=== PATIENT | female | born 1935 | race Caucasian/White ===

== ENCOUNTER 2019-06-13 12:18 | Inpatient (IN) | payer MEDICARE, BC, OTHER ==
[~2019-06-13] VITALS: Ht 170.2 cm; Wt 69.5 kg
[2019-06-17 15:00] VITALS: BP 123/63
[2019-06-17] MEDS ORDERED: NITROGLYCERIN 0.4 MG SUBL TABLET SL PRN (16:15)
[2019-06-17] MEDS ORDERED: IPRATROPIUM 0.5MG/ALBUTEROL 2.5MG INH SOL UD 3ML (DUONEB)(J7620) NEB PRN (16:15)
[2019-06-17] MEDS: FLUCONAZOLE 100 MG TAB GT SCH ×2 (16:15→18:20)
[2019-06-17] MEDS ORDERED: RIFA300C3 GT (16:37)
[2019-06-17] MEDS ORDERED: NYST50SS SS (16:37)
[2019-06-17] MEDS ORDERED: ELIQ2.5T GT (16:37)
[2019-06-17] MEDS ORDERED: DILT1TAB12 GT (16:37)
[2019-06-17] MEDS ORDERED: NYST1POW9 TOP (16:37)
[2019-06-17] MEDS ORDERED: TORS20TA2 GT (16:37)
[2019-06-17] MEDS ORDERED: PANT-23 PO (16:37)
[2019-06-17] MEDS ORDERED: RISP0.5T3 GT (16:37)
[2019-06-17] MEDS ORDERED: NITR4TASL SL (16:37)
[2019-06-17] MEDS ORDERED: ACET160O13 GT (16:37)
[2019-06-17] MEDS ORDERED: POTA1TAB14 GT (16:37)
[2019-06-17] MEDS ORDERED: FAMO1TAB11 GT (16:37)
[2019-06-17] MEDS ORDERED: REFR0.5D8 OU (16:37)
[2019-06-17] MEDS ORDERED: IPRA0.00 INH (16:37)
[2019-06-17] MEDS ORDERED: BISA10SU PR (16:37)
[2019-06-17] MEDS ORDERED: PLAV1TAB2 GT (16:37)
[2019-06-17] MEDS ORDERED: LOSA50TA88 PO (16:37)
[2019-06-17] MEDS ORDERED: CEFA1SOL IV (16:37)
[2019-06-17] MEDS ORDERED: CARV6.25 GT (16:37)
[2019-06-17] MEDS ORDERED: XALA0.007 OU (16:37)
[2019-06-17] MEDS ORDERED: ATOR80TA59 GT (16:37)
[2019-06-17] MEDS: MAGIC MOUTHWASH SUSPENSION BTL SSP SCH (17:30)
[2019-06-17] MEDS ORDERED: HYDROCORTISONE 2.5% 20GM OINTMENT TOP PRN (18:00)
[2019-06-17] MEDS: SODIUM CHLORIDE 0.9% INJ 10 ML SYR IV SCH (18:00)
[2019-06-17] MEDS: ceFAZolin SOD 2 GM in IV 1 EA IV SCH (18:21)
[2019-06-17 19:40] VITALS: BP 151/67
--- NOTE | 2019-06-17 20:04 | CR.PDOC ---
General Date of Consultation: Jun 17, 2019 Referring Provider: SHERRY DELATORRE Consultation REASON FOR CONSULTATION/CHIEF COMPLAINT: ARU HISTORY OF PRESENT ILLNESS: Patient is 83 years old female with past mental history of coronary artery diseases, atrial fibrillation, stroke and rheumatic heart diseases has been admitted to ARU after she has been treated in [facility] for MSSA bacteremia with galena valve endocarditis, patient currently receives treatment with Ancef and rifampin, PEDRO performed on 06/15 showed continued vegetations of the mitral valve with some mitral regurgitation. Also during hospital stay patient developed CVA, unclear source, could be thromboembolic secondary to atrial fibrillation or due to infective emboli. Patient has residual deficits including dysphagia and encephalopathy. Patient has a PEG tube placed on 06/03. Patient is able to take soft food by mouth. Also patient has a history of coronary artery diseases, patient is on Eliquis and Plavix. Today during my interview patient complains of oral thrush which give her some discomfort. Patient denies fever, chills, nausea, vomiting, palpitations, shortness of breath, diarrhea or dysuria ALLERGIES: Please see below. HOME MEDICATIONS: Please see below. PAST MEDICAL HISTORY: Coronary artery diseases, endocarditis, atrial fibrillation, stroke and rheumatic heart diseases Dyslipidemia, severe aortic stenosis, non-STEMI PAST SURGICAL HISTORY: Non-STEMI with PCI and stents to distal LM TaVR in 2017, multiple cardiac stents placed in 2017 FAMILY HISTORY: Father: Hypertension Mother: Heart diseases SOCIAL HISTORY: ETOH: Denied Illicit drug use: Denied IV drug use: Denied Other relevant social factors: Denied REVIEW OF SYSTEMS: 10 point system review negative except as listed above PHYSICAL EXAMINATION: VITAL SIGNS: Please see below. GENERAL APPEARANCE: Nontender distress HEENT: PERRLA, EOMI, no JVD, some oral thrush RESPIRATORY: Diminished lung sounds, some rhonchi bilaterally CARDIOVASCULAR: Irregularly irregular, mild cardiac murmur ABDOMEN: Soft nontender nondistended EXTREMITIES: No swelling, growing erythema NEUROLOGICAL: No nuchal rigidity LABORATORY DATA: Please see below. ASSESSMENT/PLAN: Patient is 83 years old female with past mental history of coronary artery diseases, atrial fibrillation, stroke and rheumatic heart diseases has been admitted to ARU after she has been treated in [facility] for MSSA bacteremia with galena valve endocarditis, patient currently receives treatment with Ancef and rifampin Endocarditis Continue treatment with IV antibiotics Continue to monitor inflammatory markers, CBC Coronary artery diseases Continue cardioprotective medications Oral thrush/groin erythema Secondary to Fara infection Nystatin mouth wash, nystatin powder CVA Continue PT/OT Vital Signs/I&O Vital Signs Date Time Temp Pulse Resp B/P (MAP) Pulse Ox O2 Delivery O2 Flow Rate FiO2 06/17/19 18:20 104 131/64 06/17/19 15:00 97.9 16 79 Allergies Coded Allergies: Penicillins (Verified Allergy, Unknown, 06/17/19) bee venom protein (honey bee) (Verified Allergy, Unknown, 06/17/19) cephalexin (Verified Allergy, Unknown, 06/17/19) sulfamethoxazole (Verified Allergy, Unknown, 06/17/19) trimethoprim (Verified Allergy, Unknown, 06/17/19) Home Medications Scheduled Apixaban (Eliquis) 2.5 Mg Tablet, 2.5 MG GT BID, (Reported) STARTED AT [facility] Atorvastatin Calcium (Atorvastatin Calcium) 80 Mg Tablet, 80 MG GT QHS, (Reported) HOME MED Carvedilol (Carvedilol) 6.25 Mg Tablet, 6.25 MG GT TID, (Reported) HOME MED Cefazolin Sodium/Dextrose,Iso (Cefazolin 2 G/100 ml-Dextrose) 2 Gm/100 Ml Froz.piggy, 2 GM IV TID, (Reported) STARTED AT [facility] Clopidogrel Bisulfate (Plavix) 75 Mg Tablet, 75 MG GT DAILY, (Reported) Diltiazem HCl (Diltiazem HCl) 60 Mg Tablet, 60 MG GT Q6H, (Reported) STARTED AT [facility] Famotidine (Famotidine) 20 Mg Tablet, 20 MG GT QHS, (Reported) Latanoprost (Xalatan) 0.005% 2.5ML Drops, 1 DROP OU QHS, (Reported) Losartan Potassium (Losartan Potassium) 50 Mg Tablet, 50 MG PO DAILY, (Reported) HOME MED Nystatin (Nystatin Oral Susp) 100,000 Unit/1 Ml Oral.susp, 5 ML SS QID, (Reported) STARTED AT [facility] Nystatin (Nystatin Powder) 15 Gm Powder, 1 DOSE TOP TID, (Reported) APPLY TO GROIN AREA - STARTED AT [facility] Pantoprazole Sodium (Pantoprazole Sodium) 40 Mg Tablet.dr, 40 MG PO DAILY, (Reported) HOME MED Potassium Chloride (Potassium Chloride) 20 Meq Tablet.er, 40 MEQ GT TID, (Reported) Rifampin (Rifampin) 300 Mg Capsule, 300 MG GT Q12H, (Reported) STARTED AT [facility] Risperidone (Risperidone) 0.5 Mg Tablet, 0.5 MG GT TID, (Reported) STARTED AT [facility] Torsemide (Torsemide) 20 Mg Tablet, 20 MG GT DAILY, (Reported) STARTED AT [facility] Scheduled PRN Acetaminophen (Children's Tylenol) 160 Mg/5 Ml Oral.susp, 640 MG GT Q4H PRN for PAIN / FEVER, (Reported) STARTED AT [facility] Bisacodyl (Bisacodyl) 10 Mg Supp.rect, 10 MG ND DAILY PRN for CONSTIPATION, (Reported) Carboxymethylcellulose Sodium (Refresh Tears) 15 Ml Drops, 1 DROP OU Q3HP PRN for DRY EYES, (Reported) Ipratropium/Albuterol Sulfate (Iprat-Albut 0.5-3(2.5) mg/3 ml) 3 Ml Ampul.neb, 1 SAL INH Q4H PRN for SHORTNESS OF BREATH, (Reported) Nitroglycerin (Nitrostat) 0.4 Mg Tab.subl, 0.4 MG SL NITRO PRN for CHEST PAIN, (Reported) SHAR MEDRANO DO Jun 17, 2019 20:04
[2019-06-17] MEDS ORDERED: risperiDONE 0.5 MG TAB GT SCH (21:00)
[2019-06-17] MEDS ORDERED: zolPIDEM TARTRATE 5 MG TAB GT PRN (21:00)
[2019-06-17] MEDS ORDERED: risperiDONE 1 MG/1 ML SOLN ORAL SYRINGE GT SCH (21:00)
[2019-06-17] MEDS: APIXABAN 2.5 MG TAB (ELIQUIS) PO SCH (22:01)
[2019-06-17] MEDS: FAMOTIDINE 20 MG TAB GT SCH (22:01)
[2019-06-17] MEDS: NYSTATIN 100,000 UNITS/GM TOPICAL PWD 15 GM TOP SCH (22:02)
[2019-06-17] MEDS: POTASSIUM CHL PWD 20 MEQ PACKET GT SCH (22:02)
[2019-06-17] MEDS: ATORVASTATIN 20 MG TAB GT SCH (22:02)
[2019-06-17] MEDS: POLYVINYL ALCOHOL OPHTH SOLN 15 ML(LIQUITEARS) OU SCH (22:03)
[2019-06-17] MEDS: LATANOPROST 0.005% OPHTH SOLN 2.5 ML OU SCH (22:03)
[2019-06-17] MEDS: risperiDONE 1 MG/1 ML SOLN ORAL SYRINGE GT SCH (22:04)
[2019-06-18] MEDS: ceFAZolin SOD 2 GM in IV 1 EA IV SCH ×3 (03:55→18:01)
[2019-06-18] MEDS: SODIUM CHLORIDE 0.9% INJ 10 ML SYR IV SCH ×2 (05:09→17:08)
[2019-06-18 05:45] VITALS: BP 137/66
[2019-06-18] MEDS: MAGIC MOUTHWASH SUSPENSION BTL SSP SCH ×3 (07:30→17:08)
[2019-06-18 07:37] LABS: BASO # 0.1 10^3/uL (0.0-0.2); BASO % 0.7 % (0.0-1.0); EOS # 0.5 10^3/uL (0.0-0.5); EOS % 4.8 % (0.0-3.0); HEMATOCRIT 33.1 % (36.0-47.0); HEMOGLOBIN 10.5 g/dl (12.0-15.5); LYMPH # 1.1 10^3/uL (1.5-5.0); LYMPH % 9.7 % (24.0-44.0); MEAN CORPUSCULAR HEMOGLOBIN 29.1 pg (27.0-33.0); MEAN CORPUSCULAR HGB CONC 31.7 g/dl (32.0-36.5); MEAN CORPUSCULAR VOLUME 91.7 fl (80.0-96.0); NEUTROPHILS # 8.3 10^3/uL (1.5-8.5); NEUTROPHILS % 75.3 % (36.0-66.0); PLATELET COUNT, AUTOMATED 516 10^3/uL (150-450); RED BLOOD COUNT 3.61 10^6/uL (4.00-5.40); WHITE BLOOD COUNT 11.1 10^3/uL (4.0-10.0)
[2019-06-18 08:00] LABS: ALBUMIN 2.7 GM/DL (3.2-5.2); ALT/SGPT 9 U/L (12-78); BILIRUBIN,TOTAL 0.6 MG/DL (0.2-1.0); BLOOD UREA NITROGEN 16 MG/DL (7-18); CALCIUM LEVEL 9.1 MG/DL (8.8-10.2); CARBON DIOXIDE LEVEL 28 MEQ/L (21-32); CHLORIDE LEVEL 96 MEQ/L (98-107); CREATININE FOR GFR 0.58 MG/DL (0.55-1.30); GLOMERULAR FILTRATION RATE > 60.0 (>32); GLUCOSE, FASTING 107 MG/DL (70-100); POTASSIUM SERUM 3.9 MEQ/L (3.5-5.1); SODIUM LEVEL 131 MEQ/L (136-145); TOTAL PROTEIN 7.5 GM/DL (6.4-8.2)
[2019-06-18] MEDS: risperiDONE 1 MG/1 ML SOLN ORAL SYRINGE GT SCH ×2 (09:54→21:58)
[2019-06-18] MEDS: POTASSIUM CHL PWD 20 MEQ PACKET GT SCH ×3 (09:54→21:58)
[2019-06-18] MEDS: CLOPIDOGREL 75 MG TAB GT SCH (09:55)
[2019-06-18] MEDS: POLYVINYL ALCOHOL OPHTH SOLN 15 ML(LIQUITEARS) OU SCH ×3 (09:55→22:00)
[2019-06-18] MEDS: NYSTATIN 100,000 UNITS/GM TOPICAL PWD 15 GM TOP SCH ×2 (09:55→22:00)
[2019-06-18] MEDS: TORSEMIDE 20 MG TAB GT SCH (09:55)
[2019-06-18] MEDS: APIXABAN 2.5 MG TAB (ELIQUIS) PO SCH ×2 (09:55→21:58)
[2019-06-18 11:10] VITALS: BP 130/73
[2019-06-18] MEDS: SODIUM CHLORIDE 0.9% INJ 10 ML SYR IV PRN ×2 (11:11→18:02)
[2019-06-18 14:00] VITALS: BP 132/70
--- NOTE | 2019-06-18 16:30 | HPEPDOC ---
Welcome Wagon Host/Hostess Note DATE OF ADMISSION: 06-17-19 SOURCE OF ADMISSION INFORMATION: [facility] and patient CHIEF COMPLAINT: stroke with endocarditis HISTORY OF PRESENT ILLNESS: 83F pmg TAVR in 2017, CAD s/p stents 2017, NSTEMI, HTN, GERD who presented to [facility] May 16, 2019 with lethargy and altered mental status and a temperature of 105 with one EKG showing Afib and admitted for sepsis. She had an elevated BNP and troponins without ST elevations. She was started on Rocephin, gentamcin, and Vancomycin. TTE on 05-18-19 showed, mild grade 1 diastolic dysfunction without vegetations on any of her valves. She was found to have MSSA bacteremia and her IV antibiotics were switched to Ancef and Rifampin. She had worsening mental status and was found to have right occipital lobe infarct with right cerebellar hemisphere and frontoparetal signal abnormalities with a ring enhancing lesion suspicious for neoplasm versus infectious emboli. She underwent a follow-up TTE on 06-13-19 after developing bradycardia with Wenckebach which showed, Moderate mitral regurgitationlarge vegetation seen prolapsing into the right atrium and Aortic Valvewell seated stent mounted biprosthetic valvano obvious perivalvular abscess or endocarditis seenno vegetations. She continued to have poor po intake with dysphaghia and a PEG was placed on 06-03-19, however patient was upgraded to level two and thins prior to discharge. She had an episode of CHF exacerbation prior to discharge, was given diuretics, and Carrion placed. She had impairments in mobility and ADLS and deemed medically appropriate for discharge to ARU on 06-17-19. REVIEW OF SYSTEMS: The following is a completed review of systems and has been reviewed. Review of systems otherwise unremarkable. PAIN: Patient self reports no pain EYES: No recent vision changes EARS, NOSE, & THROAT: No throat pain, or dysphagia, or rhinorrhea CARDIOVASCULAR: Denies chest pain or palpitations PULMONARY: Denies shortness of breath GASTROINTESTINAL: Denies constipation/diarrhea GENITOURINARY: +carrion MUSCULOSKELETAL: left sided weakness NEUROLOGICAL:stroke with left sided negelct HEMATOLOGICAL: no easy bruising SKIN: PEG PSYCHIATRIC: Unremarkable. All other review of systems found to be negative. PAST MEDICAL HISTORY: as per HPI PAST SURGICAL HISTORY: as per HPI ALLERGIES: Please see below. MEDICATIONS: Please see below. FAMILY HISTORY: Cardiac disease and DM, breast cancer SOCIAL HISTORY: no smoking/etoh/illicit drugs DIET: level 2 thins PHYSICAL EXAMINATION: VITAL SIGNS: Please see below. GENERAL: Pleasant and cooperative. No acute distress. HEENT: PERRL. Extraocular movements intact. Clear conjunctiv CARDIOVASCULAR: Regular rate and rhythm. No murmurs, rubs, or gallops LUNGS: Clear to auscultation bilaterally. No wheezes. No rhonchi ABDOMEN: Soft, nontender, nondistended. Positive bowel sounds. Normal active bowel sounds, +PEG NEUROLOGICAL: Alert and oriented times three. Cranial nerves II through XII grossly intact. Sensation grossly intact to light touch in all 4 limbs, extinciton to touch on the LUE +clonus LLE, +babinski EXTREMITIES: 5\5 strength right upper extremity, 4/5 LUE with +pronator drift. 5\5 strength right lower extremity. 4/5 strength in left lower extremity. (-) homans (-) edema SKIN: RUE PICC, PEg, intact LABORATORY DATA: Please see below. IMAGING:Imaging documentation personally reviewed by record FUNCTIONAL STATUS: Premorbid: Independent with all activities of daily life as well as mobility On Admission: Mod assistance for bathing, upper body dressing, bed chair and wheelchair transfers, toilet transfers, ambulation. 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 Neuro: right occipital, cerebellar, and frontoparietal strokes likely from septic emboli vs Afib- c/u Eliquis, statin, and plavix for secondary stroke prevention -LUE paresis with dysphagia and mild neglect 3. Cardio: endocarditis of MV, hx of TAVR last ECHO did not show vegetations on prosthetic valve, c/u antibiotics -Afib c/u Eliquis and Diltiazem -CAD s/p stents- plavix -diastolic CGF grade 1, per patient had recent CHF exacerbation. c/u diuretics -medicine consulted 4. Resp: encourage incentive spirometry 5. ID: on Cefazolin and Rifampin MSSA bacteremia (blood cx positive 05-16-19) will consult ID Thursday to assist in management, first diagnosis of endocarditis on 06-13-19 via ECHO, weekly CMP/CRP/ESR, CBC 6. DVT ppx: eliquis 7. GI ppx: pepcid 8. Pain: tylneol prn 9. : patient admitted with Thomas, she is requesting to keep in in over the weekend 9. Psych: c/u Risperidone for agitation 10. Dispo: TBD POST ADMISSION PHYSICIAN EVALUATION: Medical and functional status: Description of medical status, medical assessment: As above. Rehabilitation diagnosis and current and prior cold morbid medical conditions as above. Risk of complications and plans to mitigate them as above. Description of functional status current status is as above. Prior status as above. Status compared to preadmission: There are no clinically significant differences between the patient's current status and the information described on the preadmission screening document. Treatment plan anticipated: Treatment plan is as described above. Required disciplines including physical therapy, occupational therapy, others as noted above. Intensity of services: 3 hours a day, 6 days a week. Special considerations: There are no specific special or safety considerations that would likely preclude immediate implementation of an intensive rehabilitation program or subsequently influence the plan of care ATTESTATION: Considering all the information above, it is my best judgment that this patient requires intensive rehabilitation therapy as described above and an inpatient hospital environment due to the complexity of nursing, medical, and rehabilitation needs required by the patient. Furthermore, this patient can reasonably be expected to participate in an benefit from an inpatient rehabilitation stay with an interdisciplinary team approach to the delivery of rehabilitation care under the direction and supervision of rehabilitation physician. PROGNOSIS: Excellent ESTIMATED LENGTH OF STAY:18-21 days. PROJECTED DISCHARGE DESTINATION: Home with family support and any durable medical equipment required to increase functional safety and mobility. TIME SPENT COUNSELING AND COORDINATING INITIAL CARE: Greater than 70 minutes. Vital Signs Vital Sign - Last 24 Hours 06/17/19 06/17/19 06/17/19 06/18/19 18:20 19:40 23:25 05:45 Temp 99.2 99.9 Pulse 104 103 104 100 Resp 18 18 B/P (MAP) 131/64 151/67 (95) 139/65 137/66 (89) Pulse Ox 99 98 O2 Delivery Room Air Room Air 06/18/19 06/18/19 06/18/19 06/18/19 06:20 11:10 11:11 14:00 Temp 98.1 Pulse 100 107 107 104 Resp 17 B/P (MAP) 137/66 130/73 (92) 130/73 132/70 (90) Pulse Ox 98 O2 Delivery Room Air Laboratory Data CBC/BMP Laboratory Tests 06/18/19 07:11 Labs 24H Laboratory Tests 2 06/18/19 07:11: Immature Granulocyte % (Auto) 0.5, Neutrophils (%) (Auto) 75.3H, Lymphocytes (%) (Auto) 9.7L, Monocytes (%) (Auto) 9.0H, Eosinophils (%) (Auto) 4.8H, Basophils (%) (Auto) 0.7, Neutrophils # (Auto) 8.3, Lymphocytes # (Auto) 1.1L, Monocytes # (Auto) 1.0H, Eosinophils # (Auto) 0.5, Basophils # (Auto) 0.1, Nucleated Red Blood Cells % (auto) 0.0, Anion Gap 7L, Glomerular Filtration Rate > 60.0, Calcium Level 9.1, Total Bilirubin 0.6, Aspartate Amino Transf (AST/SGOT) 41H, Alanine Aminotransferase (ALT/SGPT) 9L, Alkaline Phosphatase 128H, Total Protein 7.5, Albumin 2.7L, Albumin/Globulin Ratio 0.56L Home Medications Scheduled Apixaban (Eliquis) 2.5 Mg Tablet, 2.5 MG GT BID, (Reported) STARTED AT [facility] Atorvastatin Calcium (Atorvastatin Calcium) 80 Mg Tablet, 80 MG GT QHS, (Reported) HOME MED Carvedilol (Carvedilol) 6.25 Mg Tablet, 6.25 MG GT TID, (Reported) HOME MED Cefazolin Sodium/Dextrose,Iso (Cefazolin 2 G/100 ml-Dextrose) 2 Gm/100 Ml Froz.piggy, 2 GM IV TID, (Reported) STARTED AT [facility] Clopidogrel Bisulfate (Plavix) 75 Mg Tablet, 75 MG GT DAILY, (Reported) Diltiazem HCl (Diltiazem HCl) 60 Mg Tablet, 60 MG GT Q6H, (Reported) STARTED AT [facility] Famotidine (Famotidine) 20 Mg Tablet, 20 MG GT QHS, (Reported) Latanoprost (Xalatan) 0.005% 2.5ML Drops, 1 DROP OU QHS, (Reported) Losartan Potassium (Losartan Potassium) 50 Mg Tablet, 50 MG PO DAILY, (Reported) HOME MED Nystatin (Nystatin Oral Susp) 100,000 Unit/1 Ml Oral.susp, 5 ML SS QID, (Reported) STARTED AT [facility] Nystatin (Nystatin Powder) 15 Gm Powder, 1 DOSE TOP TID, (Reported) APPLY TO GROIN AREA - STARTED AT [facility] Pantoprazole Sodium (Pantoprazole Sodium) 40 Mg Tablet.dr, 40 MG PO DAILY, (Reported) HOME MED Potassium Chloride (Potassium Chloride) 20 Meq Tablet.er, 40 MEQ GT TID, (Reported) Rifampin (Rifampin) 300 Mg Capsule, 300 MG GT Q12H, (Reported) STARTED AT [facility] Risperidone (Risperidone) 0.5 Mg Tablet, 0.5 MG GT TID, (Reported) STARTED AT [facility] Torsemide (Torsemide) 20 Mg Tablet, 20 MG GT DAILY, (Reported) STARTED AT [facility] Scheduled PRN Acetaminophen (Children's Tylenol) 160 Mg/5 Ml Oral.susp, 640 MG GT Q4H PRN for PAIN / FEVER, (Reported) STARTED AT [facility] Bisacodyl (Bisacodyl) 10 Mg Supp.rect, 10 MG VA DAILY PRN for CONSTIPATION, (Reported) Carboxymethylcellulose Sodium (Refresh Tears) 15 Ml Drops, 1 DROP OU Q3HP PRN for DRY EYES, (Reported) Ipratropium/Albuterol Sulfate (Iprat-Albut 0.5-3(2.5) mg/3 ml) 3 Ml Ampul.neb, 1 SAL INH Q4H PRN for SHORTNESS OF BREATH, (Reported) Nitroglycerin (Nitrostat) 0.4 Mg Tab.subl, 0.4 MG SL NITRO PRN for CHEST PAIN, (Reported) Allergies Coded Allergies: Penicillins (Verified Allergy, Unknown, 06/17/19) bee venom protein (honey bee) (Verified Allergy, Unknown, 06/17/19) cephalexin (Verified Allergy, Unknown, 06/17/19) sulfamethoxazole (Verified Allergy, Unknown, 06/17/19) trimethoprim (Verified Allergy, Unknown, 06/17/19) A-FIB/CHADSVASC A-FIB History Current/History of A-Fib/PAF?: Yes Current PO Anticoag Therapy: Yes SANJUANITA MOBLEY MD Jun 18, 2019 16:30
[2019-06-18 17:06] VITALS: BP 146/74
[2019-06-18 20:45] VITALS: BP 156/68
[2019-06-18] MEDS: ATORVASTATIN 20 MG TAB GT SCH (21:58)
[2019-06-18] MEDS: FAMOTIDINE 20 MG TAB GT SCH (21:58)
[2019-06-18] MEDS: LATANOPROST 0.005% OPHTH SOLN 2.5 ML OU SCH (22:00)
[2019-06-18] MEDS: ACETAMINOPHEN 325 MG/10.15 ML UDC GT PRN (22:02)
[2019-06-19] MEDS: ceFAZolin SOD 2 GM in IV 1 EA IV SCH ×3 (03:57→18:38)
[2019-06-19 05:41] VITALS: BP 133/70
[2019-06-19] MEDS: SODIUM CHLORIDE 0.9% INJ 10 ML SYR IV SCH ×3 (05:43→17:30)
[2019-06-19] MEDS: NYSTATIN 100,000 UNITS/GM TOPICAL PWD 15 GM TOP SCH ×2 (08:48→19:32)
[2019-06-19] MEDS: POLYVINYL ALCOHOL OPHTH SOLN 15 ML(LIQUITEARS) OU SCH ×3 (08:48→19:38)
[2019-06-19] MEDS: POTASSIUM CHL PWD 20 MEQ PACKET GT SCH ×3 (08:49→19:26)
[2019-06-19] MEDS: CLOPIDOGREL 75 MG TAB GT SCH (08:49)
[2019-06-19] MEDS: TORSEMIDE 20 MG TAB GT SCH (08:49)
[2019-06-19] MEDS: APIXABAN 2.5 MG TAB (ELIQUIS) PO SCH ×2 (08:49→19:30)
[2019-06-19] MEDS: risperiDONE 1 MG/1 ML SOLN ORAL SYRINGE GT SCH ×2 (08:50→19:30)
[2019-06-19] MEDS: MAGIC MOUTHWASH SUSPENSION BTL SSP SCH ×3 (08:50→17:31)
[2019-06-19] MEDS ORDERED: FLUBLOK(EGG FREE)(QUAD)INFLUENZA VACC 0.5ML SYRINGE (90682)18YRS&OLDER IM ONE (09:00)
[2019-06-19 11:17] VITALS: BP 140/70
[2019-06-19] MEDS: SODIUM CHLORIDE 0.9% INJ 10 ML SYR IV PRN ×3 (11:44→19:26)
[2019-06-19 14:00] VITALS: BP 140/66
[2019-06-19 16:44] VITALS: BP 151/73
[2019-06-19] MEDS: ATORVASTATIN 20 MG TAB GT SCH (19:29)
[2019-06-19] MEDS: FAMOTIDINE 20 MG TAB GT SCH (19:30)
[2019-06-19] MEDS: LATANOPROST 0.005% OPHTH SOLN 2.5 ML OU SCH (19:31)
[2019-06-19] MEDS: ACETAMINOPHEN 325 MG/10.15 ML UDC GT PRN (19:37)
[2019-06-19 19:40] VITALS: BP 165/71
[2019-06-20] MEDS: ceFAZolin SOD 2 GM in IV 1 EA IV SCH ×3 (02:01→17:45)
[2019-06-20] MEDS: SODIUM CHLORIDE 0.9% INJ 10 ML SYR IV SCH ×2 (02:49→17:42)
[2019-06-20 05:10] VITALS: BP 163/72
[2019-06-20 06:41] LABS: BASO # 0.1 10^3/uL (0.0-0.2); BASO % 0.6 % (0.0-1.0); EOS # 0.8 10^3/uL (0.0-0.5); HEMATOCRIT 29.4 % (36.0-47.0); HEMOGLOBIN 9.5 g/dl (12.0-15.5); LYMPH % 8.5 % (24.0-44.0); MEAN CORPUSCULAR HEMOGLOBIN 29.4 pg (27.0-33.0); MEAN CORPUSCULAR HGB CONC 32.3 g/dl (32.0-36.5); MONO % 8.3 % (0.0-5.0); NEUTROPHILS # 8.9 10^3/uL (1.5-8.5); NEUTROPHILS % 74.9 % (36.0-66.0); PLATELET COUNT, AUTOMATED 488 10^3/uL (150-450); RED BLOOD COUNT 3.23 10^6/uL (4.00-5.40); WHITE BLOOD COUNT 11.9 10^3/uL (4.0-10.0)
[2019-06-20 07:02] LABS: BLOOD UREA NITROGEN 15 MG/DL (7-18); C REACTIVE PROTEIN QUANTITATIV 7.71 MG/DL (0.00-0.30); CALCIUM LEVEL 8.9 MG/DL (8.8-10.2); CARBON DIOXIDE LEVEL 26 MEQ/L (21-32); CHLORIDE LEVEL 98 MEQ/L (98-107); CREATININE FOR GFR 0.68 MG/DL (0.55-1.30); GLOMERULAR FILTRATION RATE > 60.0 (>32); GLUCOSE, FASTING 93 MG/DL (70-100); POTASSIUM SERUM 3.9 MEQ/L (3.5-5.1); SODIUM LEVEL 133 MEQ/L (136-145)
[2019-06-20 07:31] LABS: ERYTHROCYTE SEDIMENTATION RATE 91 mm/hr (0-30)
[2019-06-20] MEDS: TORSEMIDE 20 MG TAB GT SCH (09:23)
[2019-06-20] MEDS: risperiDONE 1 MG/1 ML SOLN ORAL SYRINGE GT SCH (09:23)
[2019-06-20] MEDS: POTASSIUM CHL PWD 20 MEQ PACKET GT SCH (09:23)
[2019-06-20] MEDS: APIXABAN 2.5 MG TAB (ELIQUIS) PO SCH ×2 (09:23→22:02)
[2019-06-20] MEDS: CLOPIDOGREL 75 MG TAB GT SCH (09:23)
[2019-06-20] MEDS: NYSTATIN 100,000 UNITS/GM TOPICAL PWD 15 GM TOP SCH ×2 (09:24→22:06)
[2019-06-20] MEDS: POLYVINYL ALCOHOL OPHTH SOLN 15 ML(LIQUITEARS) OU SCH ×3 (09:24→22:06)
[2019-06-20] MEDS: MAGIC MOUTHWASH SUSPENSION BTL SSP SCH ×3 (09:24→17:45)
[2019-06-20] MEDS ORDERED: ACETAMINOPHEN 500 MG TAB PO SCH (12:20)
[2019-06-20] MEDS ORDERED: ATORVASTATIN 20 MG TAB PO SCH (12:21)
[2019-06-20] MEDS ORDERED: risperiDONE 0.5 MG TAB GT SCH (12:24)
[2019-06-20] MEDS ORDERED: zolPIDEM TARTRATE 5 MG TAB PO PRN (12:30)
[2019-06-20 14:00] VITALS: BP 129/64
[2019-06-20] MEDS: ANALGESIC BALM CRM 120 GM TOP SCH ×2 (16:00→22:06)
[2019-06-20] MEDS: POTASSIUM CHLORIDE 10 MEQ SR TABLET PO SCH ×2 (16:42→22:03)
[2019-06-20] MEDS: ACETAMINOPHEN 500 MG TAB PO SCH ×2 (16:43→22:05)
[2019-06-20 20:00] VITALS: BP 146/67
[2019-06-20] MEDS: FAMOTIDINE 20 MG TAB PO SCH (21:00)
[2019-06-20] MEDS: ATORVASTATIN 20 MG TAB PO SCH (22:02)
[2019-06-20] MEDS: risperiDONE 0.5 MG TAB PO SCH (22:02)
[2019-06-20] MEDS: LATANOPROST 0.005% OPHTH SOLN 2.5 ML OU SCH (22:06)
[2019-06-21] MEDS: ceFAZolin SOD 2 GM in IV 1 EA IV SCH ×3 (02:53→17:48)
[2019-06-21] MEDS: SODIUM CHLORIDE 0.9% INJ 10 ML SYR IV PRN (04:08)
[2019-06-21] MEDS: SODIUM CHLORIDE 0.9% INJ 10 ML SYR IV SCH ×2 (05:17→17:49)
[2019-06-21 06:00] VITALS: BP 160/81
[2019-06-21] MEDS: MAGIC MOUTHWASH SUSPENSION BTL SSP SCH ×3 (07:42→17:49)
[2019-06-21] MEDS: APIXABAN 2.5 MG TAB (ELIQUIS) PO SCH ×2 (07:42→20:16)
[2019-06-21] MEDS: TORSEMIDE 20 MG TAB PO SCH (07:42)
[2019-06-21] MEDS: ACETAMINOPHEN 500 MG TAB PO SCH ×3 (07:42→20:16)
[2019-06-21] MEDS: CLOPIDOGREL 75 MG TAB PO SCH (07:43)
[2019-06-21] MEDS: POTASSIUM CHLORIDE 10 MEQ SR TABLET PO SCH ×4 (07:43→21:00)
[2019-06-21] MEDS: risperiDONE 0.5 MG TAB PO SCH (07:43)
[2019-06-21] MEDS: POLYVINYL ALCOHOL OPHTH SOLN 15 ML(LIQUITEARS) OU SCH ×3 (07:44→20:15)
[2019-06-21] MEDS: ANALGESIC BALM CRM 120 GM TOP SCH ×4 (07:44→21:00)
[2019-06-21] MEDS: NYSTATIN 100,000 UNITS/GM TOPICAL PWD 15 GM TOP SCH ×2 (07:44→20:21)
--- NOTE | 2019-06-21 10:13 | IPNPDOC ---
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 REVIEW OF SYSTEMS: The following is a completed review of systems and has been reviewed. Review of systems otherwise unremarkable. PAIN: Patient self reports no pain EYES: No recent vision changes EARS, NOSE, & THROAT: No throat pain, or dysphagia, or rhinorrhea CARDIOVASCULAR: Denies chest pain or palpitations PULMONARY: Denies shortness of breath GASTROINTESTINAL: Denies constipation/diarrhea GENITOURINARY: +carrion MUSCULOSKELETAL: left sided weakness NEUROLOGICAL:stroke with left sided neglect HEMATOLOGICAL: no easy bruising SKIN: PEG PSYCHIATRIC: Unremarkable. All other review of systems found to be negative. PHYSICAL EXAMINATION: VITAL SIGNS: Please see below. GENERAL: Pleasant and cooperative. No acute distress. HEENT: PERRL. Extraocular movements intact. Clear conjunctiv CARDIOVASCULAR: Regular rate and rhythm. No murmurs, rubs, or gallops LUNGS: Clear to auscultation bilaterally. No wheezes. No rhonchi ABDOMEN: Soft, nontender, nondistended. Positive bowel sounds. Normal active bowel sounds, +PEG NEUROLOGICAL: Alert and oriented times three. Cranial nerves II through XII grossly intact. Sensation grossly intact to light touch in all 4 limbs, extinction to touch on the LUE +clonus LLE, +babinski EXTREMITIES: 5\5 strength right upper extremity, 4/5 LUE with +pronator drift. 5\5 strength right lower extremity. 4/5 strength in left lower extremity. 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 Neuro: right occipital, cerebellar, and frontoparietal strokes likely from septic emboli vs Afib- c/u Eliquis, statin, and plavix for secondary stroke prevention -LUE paresis with dysphagia and mild neglect 3. Cardio: endocarditis of MV, hx of TAVR last ECHO did not show vegetations on prosthetic valve, c/u antibiotics -Afib c/u Eliquis 2.5 BID and Diltiazem -CAD s/p stents- plavix -diastolic CHF grade 1, per patient had recent CHF exacerbation, c/u diuretics -medicine consulted 4. Resp: encourage incentive spirometry 5. ID: on Cefazolin and Rifampin MSSA bacteremia (blood cx positive 05-16-19) will consult ID tomorrow to assist in management, first diagnosis of endocarditis on 06-13-19 via ECHO, weekly CMP/CRP/ESR, CBC 6. DVT ppx: eliquis 7. GI ppx: pepcid 8. Pain: tylneol prn 9. : d/c carrion today, monitor PVRs 9. Psych: c/u Risperidone 10. Insomnia: Ambien prn 11. Hyponatremia: improving, will c/u to monitor 12. Pain: Tylenol 1g tid and menthol salicylate to S-I joints 10. Dispo: TBD Allergies Coded Allergies: Penicillins (Verified Allergy, Unknown, 06/17/19) bee venom protein (honey bee) (Verified Allergy, Unknown, 06/17/19) cephalexin (Verified Allergy, Unknown, 06/17/19) sulfamethoxazole (Verified Allergy, Unknown, 06/17/19) trimethoprim (Verified Allergy, Unknown, 06/17/19) Vital Signs Vital Signs Date Time Temp Pulse Resp B/P (MAP) Pulse Ox O2 Delivery O2 Flow Rate FiO2 06/21/19 06:00 97.3 100 17 160/81 (107) 96 Room Air Current Medications Current Medications Current Medications Medications (Trade) Dose Ordered Sig/Shaji Route PRN Reason Start Time Stop Time Status Last Admin Dose Admin Acetaminophen (Tylenol Suspension) 650 mg Q6HP PRN GT PAIN OR FEVER 06/17/19 16:15 06/20/19 12:20 DC 06/19/19 19:37 Acetaminophen (Tylenol Tab) 1,000 mg TID PO 06/20/19 12:20 06/20/19 12:20 DC Acetaminophen (Tylenol Tab) 1,000 mg TID PO 06/20/19 16:00 06/21/19 07:42 Albuterol/ Ipratropium (Duoneb (Ipr 0.5mg/Alb 2.5mg)) 3 ml Q4HP PRN NEB SOB/WHEEZING 06/17/19 16:15 Apixaban (Eliquis) 2.5 mg BID PO 06/17/19 21:00 06/21/19 07:42 Artificial Tears (Akwa Tears) 2 drop TID OU 06/17/19 21:00 06/21/19 07:44 Atorvastatin Calcium (Lipitor) 80 mg QHS GT 06/17/19 21:00 06/20/19 12:21 DC 06/19/19 19:29 Atorvastatin Calcium (Lipitor) 80 mg QHS PO 06/20/19 12:21 06/20/19 12:21 DC Atorvastatin Calcium (Lipitor) 80 mg QHS PO 06/20/19 21:00 06/20/19 22:02 Cefazolin Sodium/ Dextrose 2 gm/IV Miscellaneous Supplies 50 ml @ 75 mls/hr Q8H IV 06/17/19 19:00 06/21/19 02:53 Clopidogrel Bisulfate (PLAVix) 75 mg DAILY GT 06/18/19 09:00 06/20/19 12:21 DC 06/20/19 09:23 Clopidogrel Bisulfate (PLAVix) 75 mg DAILY PO 06/21/19 09:00 06/21/19 07:43 Diltiazem HCl (Cardizem) 60 mg Q6H GT 06/17/19 18:00 06/20/19 12:22 DC 06/20/19 11:54 Diltiazem HCl (Cardizem) 60 mg Q6H PO 06/20/19 18:00 06/21/19 05:47 Famotidine (Pepcid) 20 mg QHS GT 06/17/19 21:00 06/20/19 12:22 DC 06/19/19 19:30 Famotidine (Pepcid) 20 mg QHS PO 06/20/19 21:00 Fluconazole (Diflucan) 200 mg DAILY GT 06/17/19 16:15 06/18/19 10:21 DC Heparin Sodium (Heparin (Flush)) 200 units ASDIRECTED PRN IV SEE LABEL COMMENTS 06/17/19 17:45 06/21/19 04:08 Heparin Sodium (Heparin (Flush)) 200 units PICC IV 06/17/19 18:00 06/20/19 17:42 Home Med (Med Rec Complete!) ASDIRECTED XX 06/17/19 16:45 06/17/19 16:47 DC Hydrocortisone (Hydrocortisone 2.5% Ointment) 1 dose Q6H PRN TOP ITCHING 06/17/19 18:00 Latanoprost (Xalatan 0.005% Op Soln) 1 drop QHS OU 06/17/19 21:00 06/20/19 22:06 Lidocaine/ Diphenhydr/Alum/ Mg/Simeth (Magic Mouthwash) 5ml AC SSP 06/17/19 17:30 06/21/19 07:42 Menthol/Methyl Salicylate (Bengay Cream) 1 dose TID TOP 06/20/19 16:00 Nitroglycerin (Nitrostat (1/ 150)) 0.4 mg Q5MP PRN SL CHEST PAIN 06/17/19 16:15 Nystatin (Mycostatin Powder, Nystop) abdominal folds/groin BID TOP 06/17/19 21:00 06/21/19 07:44 Potassium Chloride (K-Isabell 20 Meq Powder Packet) 40 meq TID GT 06/17/19 21:00 06/20/19 12:23 DC 06/20/19 09:23 Potassium Chloride (Micro-K Extencaps) 40 meq TID PO 06/20/19 16:00 06/21/19 07:43 Rifampin (Rifadin) 300 mg BID GT 06/17/19 21:00 06/20/19 12:24 DC 06/20/19 09:22 Rifampin (Rifadin) 300 mg BID PO 06/20/19 21:00 06/21/19 07:43 Risperidone (RisperDAL LIQUID) 0.5 mg BID GT 06/17/19 21:00 06/20/19 12:24 DC 06/20/19 09:23 Risperidone (RisperDAL LIQUID) 0.5 mg BID GT 06/17/19 21:00 06/17/19 20:25 DC Risperidone (RisperDAL) 0.5 mg BID GT 06/20/19 12:24 06/20/19 12:25 DC Risperidone (RisperDAL) 0.5 mg BID GT 06/17/19 21:00 06/17/19 20:09 DC Risperidone (RisperDAL) 0.5 mg BID PO 06/20/19 21:00 06/21/19 07:43 Sodium Chloride (Saline Lock Flush) 10 ml ASDIRECTED PRN IV SEE LABEL COMMENTS 06/17/19 17:45 06/21/19 04:08 Sodium Chloride (Saline Lock Flush) 10 ml PICC IV 06/17/19 18:00 06/20/19 17:42 Torsemide (Demadex) 20 mg DAILY GT 06/18/19 09:00 06/20/19 12:25 DC 06/20/19 09:23 Torsemide (Demadex) 20 mg DAILY PO 06/21/19 09:00 06/21/19 07:42 Zolpidem Tartrate (Ambien) 5 mg QHSP PRN GT INSOMNIA 06/17/19 21:00 06/20/19 12:26 DC Zolpidem Tartrate (Ambien) 5 mg QHSP PRN PO INSOMNIA 06/20/19 12:30 SANJUANITA MOBLEY MD Jun 21, 2019 10:13
--- NOTE | 2019-06-21 10:14 | IPNPDOC ---
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 She reports having flatus and this was confirmed with nursing. She is agreeable to an enema. REVIEW OF SYSTEMS: The following is a completed review of systems and has been reviewed. Review of systems otherwise unremarkable. PAIN: Patient self reports no pain EYES: No recent vision changes EARS, NOSE, & THROAT: No throat pain, or dysphagia, or rhinorrhea CARDIOVASCULAR: Denies chest pain or palpitations PULMONARY: Denies shortness of breath GASTROINTESTINAL: +constipation GENITOURINARY: +urinary retention MUSCULOSKELETAL: left sided weakness NEUROLOGICAL:stroke with left sided neglect HEMATOLOGICAL: no easy bruising SKIN: PEG PSYCHIATRIC: Unremarkable. All other review of systems found to be negative. PHYSICAL EXAMINATION: VITAL SIGNS: Please see below. GENERAL: Pleasant and cooperative. No acute distress. HEENT: PERRL. Extraocular movements intact. Clear conjunctive CARDIOVASCULAR: Regular rate and rhythm. No murmurs, rubs, or gallops LUNGS: Clear to auscultation bilaterally. No wheezes. No rhonchi ABDOMEN: Soft, mildly distended, non-tender, hyperactive bowel sounds, +PEG NEUROLOGICAL: Alert and oriented times three. Cranial nerves II through XII grossly intact. Sensation grossly intact to light touch in all 4 limbs, extinction to touch on the LUE +clonus LLE, +babinski EXTREMITIES: 5\5 strength right upper extremity, 4/5 LUE with +pronator drift. 5\5 strength right lower extremity. 4/5 strength in left lower extremity. 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 Neuro: right occipital, cerebellar, and frontoparietal strokes likely from septic emboli vs Afib- c/u Eliquis, statin, and plavix for secondary stroke prevention -LUE paresis with dysphagia and mild neglect 3. Cardio: endocarditis of MV, hx of TAVR last ECHO did not show vegetations on prosthetic valve, c/u antibiotics -Afib c/u Eliquis 2.5 BID and Diltiazem -CAD s/p stents- plavix -diastolic CHF grade 1, per patient had recent CHF exacerbation, c/u diuretics -medicine consulted 4. Resp: encourage incentive spirometry 5. ID: on Cefazolin and Rifampin MSSA bacteremia (blood cx positive 05-16-19) will consult ID to assist in management, first diagnosis of endocarditis on 06-13-19 via ECHO, weekly CMP/CRP/ESR, CBC 6. DVT ppx: eliquis 7. GI ppx: pepcid -will optimize bowel meds, will order enema -KUB ordered to r/o ileus, patient +flatus 8. Pain: tylneol prn 9. : monitor PVRs, hx f bladder prolapse, surrently with retention possibly due to constipation 9. Psych: c/u Risperidone for agitation while on inpatient, will taper off 10. Insomnia: Ambien prn 11. Hyponatremia: improving, will c/u to monitor 12. Pain: Tylenol 1g tid and menthol salicylate to S-I joints 10. Dispo: 07-12-19 to home Allergies Coded Allergies: Penicillins (Verified Allergy, Unknown, 06/17/19) bee venom protein (honey bee) (Verified Allergy, Unknown, 06/17/19) cephalexin (Verified Allergy, Unknown, 06/17/19) sulfamethoxazole (Verified Allergy, Unknown, 06/17/19) trimethoprim (Verified Allergy, Unknown, 06/17/19) Vital Signs Vital Signs Date Time Temp Pulse Resp B/P (MAP) Pulse Ox O2 Delivery O2 Flow Rate FiO2 06/21/19 06:00 97.3 100 17 160/81 (107) 96 Room Air Current Medications Current Medications Current Medications Medications (Trade) Dose Ordered Sig/Shaji Route PRN Reason Start Time Stop Time Status Last Admin Dose Admin Acetaminophen (Tylenol Suspension) 650 mg Q6HP PRN GT PAIN OR FEVER 06/17/19 16:15 06/20/19 12:20 DC 06/19/19 19:37 Acetaminophen (Tylenol Tab) 1,000 mg TID PO 06/20/19 12:20 06/20/19 12:20 DC Acetaminophen (Tylenol Tab) 1,000 mg TID PO 06/20/19 16:00 06/21/19 07:42 Albuterol/ Ipratropium (Duoneb (Ipr 0.5mg/Alb 2.5mg)) 3 ml Q4HP PRN NEB SOB/WHEEZING 06/17/19 16:15 Apixaban (Eliquis) 2.5 mg BID PO 06/17/19 21:00 06/21/19 07:42 Artificial Tears (Akwa Tears) 2 drop TID OU 06/17/19 21:00 06/21/19 07:44 Atorvastatin Calcium (Lipitor) 80 mg QHS GT 06/17/19 21:00 06/20/19 12:21 DC 06/19/19 19:29 Atorvastatin Calcium (Lipitor) 80 mg QHS PO 06/20/19 12:21 06/20/19 12:21 DC Atorvastatin Calcium (Lipitor) 80 mg QHS PO 06/20/19 21:00 06/20/19 22:02 Cefazolin Sodium/ Dextrose 2 gm/IV Miscellaneous Supplies 50 ml @ 75 mls/hr Q8H IV 06/17/19 19:00 06/21/19 02:53 Clopidogrel Bisulfate (PLAVix) 75 mg DAILY GT 06/18/19 09:00 06/20/19 12:21 DC 06/20/19 09:23 Clopidogrel Bisulfate (PLAVix) 75 mg DAILY PO 06/21/19 09:00 06/21/19 07:43 Diltiazem HCl (Cardizem) 60 mg Q6H GT 06/17/19 18:00 06/20/19 12:22 DC 06/20/19 11:54 Diltiazem HCl (Cardizem) 60 mg Q6H PO 06/20/19 18:00 06/21/19 05:47 Famotidine (Pepcid) 20 mg QHS GT 06/17/19 21:00 06/20/19 12:22 DC 06/19/19 19:30 Famotidine (Pepcid) 20 mg QHS PO 06/20/19 21:00 Fluconazole (Diflucan) 200 mg DAILY GT 06/17/19 16:15 06/18/19 10:21 DC Heparin Sodium (Heparin (Flush)) 200 units ASDIRECTED PRN IV SEE LABEL COMMENTS 06/17/19 17:45 06/21/19 04:08 Heparin Sodium (Heparin (Flush)) 200 units PICC IV 06/17/19 18:00 06/20/19 17:42 Home Med (Med Rec Complete!) ASDIRECTED XX 06/17/19 16:45 06/17/19 16:47 DC Hydrocortisone (Hydrocortisone 2.5% Ointment) 1 dose Q6H PRN TOP ITCHING 06/17/19 18:00 Latanoprost (Xalatan 0.005% Op Soln) 1 drop QHS OU 06/17/19 21:00 06/20/19 22:06 Lidocaine/ Diphenhydr/Alum/ Mg/Simeth (Magic Mouthwash) 5ml AC SSP 06/17/19 17:30 06/21/19 07:42 Menthol/Methyl Salicylate (Bengay Cream) 1 dose TID TOP 06/20/19 16:00 Nitroglycerin (Nitrostat (1/ 150)) 0.4 mg Q5MP PRN SL CHEST PAIN 06/17/19 16:15 Nystatin (Mycostatin Powder, Nystop) abdominal folds/groin BID TOP 06/17/19 21:00 06/21/19 07:44 Potassium Chloride (K-Isabell 20 Meq Powder Packet) 40 meq TID GT 06/17/19 21:00 06/20/19 12:23 DC 06/20/19 09:23 Potassium Chloride (Micro-K Extencaps) 40 meq TID PO 06/20/19 16:00 06/21/19 07:43 Rifampin (Rifadin) 300 mg BID GT 06/17/19 21:00 06/20/19 12:24 DC 06/20/19 09:22 Rifampin (Rifadin) 300 mg BID PO 06/20/19 21:00 06/21/19 07:43 Risperidone (RisperDAL LIQUID) 0.5 mg BID GT 06/17/19 21:00 06/20/19 12:24 DC 06/20/19 09:23 Risperidone (RisperDAL LIQUID) 0.5 mg BID GT 06/17/19 21:00 06/17/19 20:25 DC Risperidone (RisperDAL) 0.5 mg BID GT 06/20/19 12:24 06/20/19 12:25 DC Risperidone (RisperDAL) 0.5 mg BID GT 06/17/19 21:00 06/17/19 20:09 DC Risperidone (RisperDAL) 0.5 mg BID PO 06/20/19 21:00 06/21/19 07:43 Sodium Chloride (Saline Lock Flush) 10 ml ASDIRECTED PRN IV SEE LABEL COMMENTS 06/17/19 17:45 06/21/19 04:08 Sodium Chloride (Saline Lock Flush) 10 ml PICC IV 06/17/19 18:00 06/20/19 17:42 Torsemide (Demadex) 20 mg DAILY GT 06/18/19 09:00 06/20/19 12:25 DC 06/20/19 09:23 Torsemide (Demadex) 20 mg DAILY PO 06/21/19 09:00 06/21/19 07:42 Zolpidem Tartrate (Ambien) 5 mg QHSP PRN GT INSOMNIA 06/17/19 21:00 06/20/19 12:26 DC Zolpidem Tartrate (Ambien) 5 mg QHSP PRN PO INSOMNIA 06/20/19 12:30 SANJUANITA MOBLEY MD Jun 21, 2019 10:14
[2019-06-21 11:39] LABS: BASO # 0.1 10^3/uL (0.0-0.2); BASO % 0.5 % (0.0-1.0); EOS # 0.7 10^3/uL (0.0-0.5); EOS % 5.5 % (0.0-3.0); HEMATOCRIT 33.8 % (36.0-47.0); HEMOGLOBIN 10.5 g/dl (12.0-15.5); LYMPH # 0.9 10^3/uL (1.5-5.0); LYMPH % 6.6 % (24.0-44.0); MEAN CORPUSCULAR HEMOGLOBIN 29.1 pg (27.0-33.0); MEAN CORPUSCULAR HGB CONC 31.1 g/dl (32.0-36.5); MEAN CORPUSCULAR VOLUME 93.6 fl (80.0-96.0); MONO # 1.1 10^3/uL (0.0-0.8); MONO % 8.6 % (0.0-5.0); NEUTROPHILS # 10.3 10^3/uL (1.5-8.5); PLATELET COUNT, AUTOMATED 538 10^3/uL (150-450); RED BLOOD COUNT 3.61 10^6/uL (4.00-5.40); WHITE BLOOD COUNT 13.2 10^3/uL (4.0-10.0)
[2019-06-21 12:57] LABS: BLOOD UREA NITROGEN 15 MG/DL (7-18); C REACTIVE PROTEIN QUANTITATIV 9.93 MG/DL (0.00-0.30); CALCIUM LEVEL 9.2 MG/DL (8.8-10.2); CARBON DIOXIDE LEVEL 25 MEQ/L (21-32); CHLORIDE LEVEL 100 MEQ/L (98-107); CREATININE FOR GFR 0.82 MG/DL (0.55-1.30); GLOMERULAR FILTRATION RATE > 60.0 (>32); GLUCOSE, FASTING 112 MG/DL (70-100); POTASSIUM SERUM 4.9 MEQ/L (3.5-5.1); SODIUM LEVEL 131 MEQ/L (136-145)
--- NOTE | 2019-06-21 13:18 | REP ---
KUB: Single view. History: Recent peg placement. Vomiting. Rule out ileus. No comparison imaging. Findings: Gastrostomy tube is noted in the left upper quadrant. There is a moderate amount of formed stool in the left colon and rectum with mild rectal distension. There is mild gaseous distension of a few loops of distal ileum in the right mid and lower abdomen which may reflect minimal ileus. Psoas margins are symmetric. Flank stripes appear intact. There is some vascular calcification. Impression: G tube in place. There are a few mildly dilated air-filled loops of ileum in the right mid abdomen question mild ileus. There is a moderate amount of formed stool in the left colon with mild rectal distension. Electronically Signed by Fermín Hung MD 06/21/2019 01:09 P
[2019-06-21 14:00] VITALS: BP 143/75
[2019-06-21] MEDS: DOCUSATE SODIUM 100 MG CAP PO SCH ×2 (16:18→20:16)
[2019-06-21] MEDS: SODIUM CHLORIDE 1 GM TAB PO SCH ×2 (17:48→20:16)
[2019-06-21] MEDS ORDERED: GI COCKTAIL 50ML BTL(HYOSCYAMINE/MAALOX/LIDOCAINE VISCOUS)(1:3:1) PO PRN (19:00)
--- NOTE | 2019-06-21 19:07 | CR ---
DATE OF CONSULTATION: 06/21/2019 REASON FOR CONSULTATION: Endocarditis with methicillin-sensitive Staphylococcus aureus (MSSA). ATTENDING PHYSICIAN: Dr. Linda Thornton HISTORY OF PRESENT ILLNESS: Ms. Conley is an 83-year-old female who originally presented to [facility] [place] with a chief complaint of decreased energy and overall not feeling well. At the time, the patient had deteriorated in the emergency room (ER) and was subsequently admitted to the intensive care unit (ICU). She had what resulted in an occipital lobe infarction as well as involvement of her parietal lobe as well. On 05/16/2019, the patient had blood cultures drawn which resulted positive 2/2 for methicillin-sensitive Staphylococcus aureus. Additionally, she had received a CT scan which demonstrated a right parietal infarct. The patient subsequently received a transthoracic echocardiogram on 05/18/2019 which at first was negative for any vegetations. However, a transesophageal echocardiogram was performed and demonstrated a mitral valve vegetation. The patient continued to be hospitalized at [place] and then had received a percutaneous endoscopic gastrostomy (PEG) tube placement due to dysphagia on 06/02/2019. The patient was seen by infectious disease at [place] and was started on rifampin and cephazolin. Her blood cultures were negative on 05/19/2019 and continued to be negative on 06/13/2019 when she was transferred to [facility] for acute rehabilitation. At [facility], she has been continued on her rifampin 300 mg twice a day as well as cephazolin. The patient currently denies any symptoms. She denies any fevers or chills. She states that she feels okay. Regarding her laboratory data, the patient has had an elevated white count of 13.2 and an elevated C-reactive protein of 9.93 as well as an elevated sedimentation rate of 91. The patient's currently planned end of treatment date is 06/30/2019. PAST MEDICAL HISTORY: 1. Coronary artery disease with drug-eluting stent placement in 2016. 2. [id number] myocardial infarction (NSTEMI) 03/25/2018. 3. Transcatheter aortic valve replacement (TAVR) 2017. 4. Hypertension. 5. Gastroesophageal reflux disease. 6. Atrial fibrillation. 7. Endocarditis with methicillin-sensitive Staphylococcus aureus (MSSA) positive blood cultures on 05/16/2019. 8. Right parietal lobe infarct. 9. Dyslipidemia. 10. History of rheumatic heart disease. PAST SURGICAL HISTORY: 1. Percutaneous intervention and stent placement to her distal left marginal branch. 2. Transcatheter aortic valve replacement (TAVR) in 2017 as well as additional cardiac stents in 2017. FAMILY HISTORY: The patient has a father with hypertension and a mother with heart disease. SOCIAL HISTORY: The patient currently denies any alcohol or tobacco use. She denies any IV or illicit drug use. REVIEW OF SYSTEMS: CONSTITUTIONAL: The patient denies any chills or fevers. She denies any weight loss or weight gain. She denies any night sweats. HEENT: The patient denies any changes in her vision. She denies any cough. She does admit to some dysphagia. CARDIOVASCULAR: The patient denies any chest pain. She denies any palpitations or feelings of her heart racing or skipping beats. PULMONARY: The patient denies any shortness of breath. She denies any cough, wheezing. She denies any sputum production. ABDOMINAL: The patient denies any abdominal pain. She denies any nausea, vomiting, or diarrhea. The patient admits to constipation today. MUSCULOSKELETAL: The patient admits to left-sided weakness in her upper and lower extremities. SKIN: The patient admits to a history of a diffuse pruritic body rash which comes and goes. NEUROLOGIC: The patient denies any changes in her gait. She denies any changes in her speech. She admits to dysphagia and left-sided weakness. PSYCHIATRIC: The patient denies any history of depression or anxiety. PHYSICAL EXAMINATION VITAL SIGNS: Temp 98.3; Pulse 94, Blood Pressure 156/80; Pulse Oximetry 96% on RA GENERAL; Patient is awake alert and oriented. She is sitting comfortably in her chair. She appears in no acute distress HEENT: Atraumatic, normocephalic. Eyes are nonicteric. Trachea is midline. No palpable cervical, axillary, or supraclavicular lymphadenopathy CARDIOVASCULAR: Normal S1, S2. Irregularly irregular rhythm. Slightly tachycardic rate. 2/6 systolic ejection murmur. No clicks or rubs. No JVD PULMONARY: Clear vesicular breath sounds bilaterally with good respiratory effort. No wheezes, rhonchi or rales. Symmetric chest expansion ABDOMINAL: Soft, nondistended. Nontender throughout. No rebound tenderness or guarding. Normoactive bowel sounds. EXTREMITIES: No edema. 2+ posterior tibial and radial pulses bilaterally NEUROLOGICAL: 4/5 muscle weakness in left upper and lower extremities. 5/5 muscle strength in right upper and lower extremities. No focal neurological deficits PSYCHIATRIC: Mood and affect appear appropriate LABORATORY DATA: Hematology: White blood cell 13.2, hemoglobin 10.5, hematocrit 33.8, platelet count 538. Chemistries: Sodium 131, potassium 4.9, chloride 100, carbon dioxide 25, BUN 15, creatinine 0.82, fasting glucose 112, calcium 9.2. C-reactive protein 9.93. ESR 91. IMAGING: Abdominal x-ray: The patient has a G-tube in place. There are a few mildly dilated air filled loops of ileum in the right mid abdomen with questionable mild ileus. There is a moderate amount of formed stool in the left colon with mild distension. ASSESSMENT AND PLAN: 1. Endocarditis with methicillin-sensitive Staphylococcus aureus (MSSA) bacteremia on 05/16/2019. The patient presented to [facility] where she was found to have MSSA bacteremia and found with transesophageal echocardiogram (PEDRO) to have a mitral valve vegetation. She has been started on rifampin and cephazolin. She was culture negative on 05/19/2019 which would make her end of treatment date 06/30/2019. The plan is to continue the patient on IV antibiotics until that time. At which point, the patient will likely need a repeat of her transesophageal echocardiogram to look for resolution of her vegetation. The patient's inflammatory markers including her C-reactive protein (CRP) and her erythrocyte sedimentation rate (ESR) appear to be elevated. We will repeat on to assess if it is truly going up. In which case, the patient may need different antibiotic therapy. 2. Fara infection. The patient is currently on nystatin powder for this. 3. Eczematous rash. The patient has a history of a full body pruritic rash which has resulted in her scratching herself and possibly the source of her original bacteremia. The patient currently has a rash on her forearms. We will order triamcinolone cream to be applied twice daily to her affected areas. MTDD
[2019-06-21 20:00] VITALS: BP 133/69
[2019-06-21] MEDS: TRIAMCINOLONE ACET 0.1% CREAM 80 GM TOP SCH (20:14)
[2019-06-21] MEDS: LATANOPROST 0.005% OPHTH SOLN 2.5 ML OU SCH (20:15)
[2019-06-21] MEDS: FAMOTIDINE 20 MG TAB PO SCH (20:16)
[2019-06-21] MEDS: ATORVASTATIN 20 MG TAB PO SCH (20:16)
[2019-06-21] MEDS: SENNA 8.6 MG TAB (SENOKOT) PO SCH (20:20)
[2019-06-21] MEDS: risperiDONE 0.25 MG TAB PO SCH (21:00)
[2019-06-22] MEDS: ceFAZolin SOD 2 GM in IV 1 EA IV SCH ×3 (03:44→18:44)
[2019-06-22] MEDS: SODIUM CHLORIDE 0.9% INJ 10 ML SYR IV SCH ×2 (05:04→17:25)
[2019-06-22 06:00] VITALS: BP 151/72
[2019-06-22] MEDS: SODIUM CHLORIDE 1 GM TAB PO SCH ×3 (08:57→21:30)
[2019-06-22] MEDS: MAGIC MOUTHWASH SUSPENSION BTL SSP SCH ×3 (08:57→17:26)
[2019-06-22] MEDS: DOCUSATE SODIUM 100 MG CAP PO SCH ×3 (08:57→21:28)
[2019-06-22] MEDS: CLOPIDOGREL 75 MG TAB PO SCH (08:57)
[2019-06-22] MEDS: ACETAMINOPHEN 500 MG TAB PO SCH ×3 (08:58→21:30)
[2019-06-22] MEDS: APIXABAN 2.5 MG TAB (ELIQUIS) PO SCH ×2 (08:59→21:28)
[2019-06-22] MEDS: risperiDONE 0.25 MG TAB PO SCH ×2 (08:59→21:30)
[2019-06-22] MEDS: POLYVINYL ALCOHOL OPHTH SOLN 15 ML(LIQUITEARS) OU SCH ×3 (08:59→21:31)
[2019-06-22] MEDS: TORSEMIDE 20 MG TAB PO SCH (08:59)
[2019-06-22] MEDS: POTASSIUM CHLORIDE 10 MEQ SR TABLET PO SCH (08:59)
[2019-06-22] MEDS: TRIAMCINOLONE ACET 0.1% CREAM 80 GM TOP SCH ×2 (09:00→21:32)
[2019-06-22] MEDS: ANALGESIC BALM CRM 120 GM TOP SCH ×3 (09:00→21:32)
[2019-06-22] MEDS: NYSTATIN 100,000 UNITS/GM TOPICAL PWD 15 GM TOP SCH ×2 (09:01→21:32)
[2019-06-22 10:15] LABS: BASO # 0.1 10^3/uL (0.0-0.2); BASO % 0.7 % (0.0-1.0); EOS # 0.9 10^3/uL (0.0-0.5); EOS % 7.5 % (0.0-3.0); HEMATOCRIT 30.6 % (36.0-47.0); HEMOGLOBIN 9.8 g/dl (12.0-15.5); LYMPH # 0.9 10^3/uL (1.5-5.0); LYMPH % 7.3 % (24.0-44.0); MEAN CORPUSCULAR HEMOGLOBIN 29.4 pg (27.0-33.0); MEAN CORPUSCULAR VOLUME 91.9 fl (80.0-96.0); MONO # 0.9 10^3/uL (0.0-0.8); MONO % 7.4 % (0.0-5.0); NEUTROPHILS # 9.1 10^3/uL (1.5-8.5); NEUTROPHILS % 76.8 % (36.0-66.0); PLATELET COUNT, AUTOMATED 527 10^3/uL (150-450); RED BLOOD COUNT 3.33 10^6/uL (4.00-5.40); WHITE BLOOD COUNT 11.9 10^3/uL (4.0-10.0)
[2019-06-22 10:32] LABS: BLOOD UREA NITROGEN 15 MG/DL (7-18); C REACTIVE PROTEIN QUANTITATIV 8.27 MG/DL (0.00-0.30); CALCIUM LEVEL 9.2 MG/DL (8.8-10.2); CARBON DIOXIDE LEVEL 26 MEQ/L (21-32); CHLORIDE LEVEL 101 MEQ/L (98-107); CREATININE FOR GFR 0.85 MG/DL (0.55-1.30); GLOMERULAR FILTRATION RATE > 60.0 (>32); GLUCOSE, FASTING 122 MG/DL (70-100); POTASSIUM SERUM 4.2 MEQ/L (3.5-5.1); SODIUM LEVEL 133 MEQ/L (136-145)
--- NOTE | 2019-06-22 10:47 | IPNPDOC ---
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 She was encouraged to try using the toilet every 2 hours. REVIEW OF SYSTEMS: The following is a completed review of systems and has been reviewed. Review of systems otherwise unremarkable. PAIN: Patient self reports no pain EYES: No recent vision changes EARS, NOSE, & THROAT: No throat pain, or dysphagia, or rhinorrhea CARDIOVASCULAR: Denies chest pain or palpitations PULMONARY: Denies shortness of breath GASTROINTESTINAL: +constipation (resolved) GENITOURINARY: +urinary retention MUSCULOSKELETAL: left sided weakness NEUROLOGICAL:stroke with left sided neglect HEMATOLOGICAL: no easy bruising SKIN: PEG PSYCHIATRIC: Unremarkable. All other review of systems found to be negative. PHYSICAL EXAMINATION: VITAL SIGNS: Please see below. GENERAL: Pleasant and cooperative. No acute distress. HEENT: PERRL. Extraocular movements intact. Clear conjunctive CARDIOVASCULAR: Regular rate and rhythm. No murmurs, rubs, or gallops LUNGS: Clear to auscultation bilaterally. No wheezes. No rhonchi ABDOMEN: Soft, mildly distended, non-tender, hyperactive bowel sounds, +PEG NEUROLOGICAL: Alert and oriented times three. Cranial nerves II through XII grossly intact. Sensation grossly intact to light touch in all 4 limbs, extinction to touch on the LUE +clonus LLE, +babinski EXTREMITIES: 5\5 strength right upper extremity, 4/5 LUE with +pronator drift. 5\5 strength right lower extremity. 4/5 strength in left lower extremity. 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 Neuro: right occipital, cerebellar, and frontoparietal strokes likely from septic emboli vs Afib- c/u Eliquis, statin, and plavix for secondary stroke prevention -LUE paresis with dysphagia and mild neglect -will start SSRI for motor recovery 3. Cardio: endocarditis of MV, hx of TAVR last ECHO did not show vegetations on prosthetic valve, c/u antibiotics -Afib c/u Eliquis 2.5 BID and Diltiazem, propranolol added for tac -CAD s/p stents- Plavix -diastolic CHF grade 1, per patient had recent CHF exacerbation, c/u diuretics -medicine consulted 4. Resp: encourage incentive spirometry 5. ID: on Cefazolin and Rifampin MSSA bacteremia (blood cx positive 05-16-19) ID consulted, recs appreciated, first diagnosis of endocarditis on 06-13-19 via ECHO, weekly CMP/CRP/ESR, CBC 6. DVT ppx: eliquis 7. GI ppx: pepcid -will optimize bowel meds -KUB 06-21-19 +stool retention and questionable ileus, however patient passing flatus and having bowel movements, c/u to monitor 9. : monitor PVRs, hx of bladder prolapse, currently with retention, c/u to IC with Coude catheter and lidocaine jelly to minimize pain 9. Psych: c/u Risperidone for agitation while on inpatient, tapering off 10. Insomnia: Ambien prn 11. Hyponatremia: improving, will c/u to monitor, c/u NaCl tabs and fluid restriction 12. Pain: Tylenol 1g tid and menthol salicylate to S-I joints 10. Dispo: 07-12-19 to home Allergies Coded Allergies: Penicillins (Verified Allergy, Unknown, 06/17/19) bee venom protein (honey bee) (Verified Allergy, Unknown, 06/17/19) cephalexin (Verified Allergy, Unknown, 06/17/19) sulfamethoxazole (Verified Allergy, Unknown, 06/17/19) trimethoprim (Verified Allergy, Unknown, 06/17/19) Vital Signs Vital Signs Date Time Temp Pulse Resp B/P (MAP) Pulse Ox O2 Delivery O2 Flow Rate FiO2 06/22/19 06:00 98.1 103 18 151/72 (98) 97 Room Air Laboratory Data CBC/BMP Laboratory Tests 06/21/19 11:14 06/22/19 09:51 Labs 24H Laboratory Tests 2 06/21/19 11:14: Immature Granulocyte % (Auto) 0.8, Neutrophils (%) (Auto) 78.0H, Lymphocytes (%) (Auto) 6.6L, Monocytes (%) (Auto) 8.6H, Eosinophils (%) (Auto) 5.5H, Basophils (%) (Auto) 0.5, Neutrophils # (Auto) 10.3H, Lymphocytes # (Auto) 0.9L, Monocytes # (Auto) 1.1H, Eosinophils # (Auto) 0.7H, Basophils # (Auto) 0.1, Nucleated Red Blood Cells % (auto) 0.0, Anion Gap 6L, Glomerular Filtration Rate > 60.0, Calcium Level 9.2, C-Reactive Protein, Quantitative 9.93H 06/22/19 09:51: Immature Granulocyte % (Auto) 0.3, Neutrophils (%) (Auto) 76.8H, Lymphocytes (%) (Auto) 7.3L, Monocytes (%) (Auto) 7.4H, Eosinophils (%) (Auto) 7.5H, Basophils (%) (Auto) 0.7, Neutrophils # (Auto) 9.1H, Lymphocytes # (Auto) 0.9L, Monocytes # (Auto) 0.9H, Eosinophils # (Auto) 0.9H, Basophils # (Auto) 0.1, Nucleated Red Blood Cells % (auto) 0.0, Anion Gap 6L, Glomerular Filtration Rate > 60.0, Calcium Level 9.2, C-Reactive Protein, Quantitative 8.27H Current Medications Current Medications Current Medications Medications (Trade) Dose Ordered Sig/Shaji Route PRN Reason Start Time Stop Time Status Last Admin Dose Admin Acetaminophen (Tylenol Suspension) 650 mg Q6HP PRN GT PAIN OR FEVER 06/17/19 16:15 06/20/19 12:20 DC 06/19/19 19:37 Acetaminophen (Tylenol Tab) 1,000 mg TID PO 06/20/19 12:20 06/20/19 12:20 DC Acetaminophen (Tylenol Tab) 1,000 mg TID PO 06/20/19 16:00 06/22/19 08:58 Albuterol/ Ipratropium (Duoneb (Ipr 0.5mg/Alb 2.5mg)) 3 ml Q4HP PRN NEB SOB/WHEEZING 06/17/19 16:15 Apixaban (Eliquis) 2.5 mg BID PO 06/17/19 21:00 06/22/19 08:59 Artificial Tears (Akwa Tears) 2 drop TID OU 06/17/19 21:00 06/22/19 08:59 Atorvastatin Calcium (Lipitor) 80 mg QHS GT 06/17/19 21:00 06/20/19 12:21 DC 06/19/19 19:29 Atorvastatin Calcium (Lipitor) 80 mg QHS PO 06/20/19 12:21 06/20/19 12:21 DC Atorvastatin Calcium (Lipitor) 80 mg QHS PO 06/20/19 21:00 06/21/19 20:16 Cefazolin Sodium/ Dextrose 2 gm/IV Miscellaneous Supplies 50 ml @ 75 mls/hr Q8H IV 06/17/19 19:00 06/22/19 03:44 Clopidogrel Bisulfate (PLAVix) 75 mg DAILY GT 06/18/19 09:00 06/20/19 12:21 DC 06/20/19 09:23 Clopidogrel Bisulfate (PLAVix) 75 mg DAILY PO 06/21/19 09:00 06/22/19 08:57 Diltiazem HCl (Cardizem) 60 mg Q6H GT 06/17/19 18:00 06/20/19 12:22 DC 06/20/19 11:54 Diltiazem HCl (Cardizem) 60 mg Q6H PO 06/20/19 18:00 06/22/19 05:03 Docusate Sodium (Colace) 100 mg TID PO 06/21/19 16:00 06/22/19 08:57 Famotidine (Pepcid) 20 mg QHS GT 06/17/19 21:00 06/20/19 12:22 DC 06/19/19 19:30 Famotidine (Pepcid) 20 mg QHS PO 06/20/19 21:00 06/21/19 20:16 Fluconazole (Diflucan) 200 mg DAILY GT 06/17/19 16:15 06/18/19 10:21 DC Heparin Sodium (Heparin (Flush)) 200 units ASDIRECTED PRN IV SEE LABEL COMMENTS 06/17/19 17:45 06/21/19 04:08 Heparin Sodium (Heparin (Flush)) 200 units PICC IV 06/17/19 18:00 06/22/19 05:04 Home Med (Med Rec Complete!) ASDIRECTED XX 06/17/19 16:45 06/17/19 16:47 DC Hydrocortisone (Hydrocortisone 2.5% Ointment) 1 dose Q6H PRN TOP ITCHING 06/17/19 18:00 Hyoscyamine/Lido/ Alumin/Mag/Simethi (Gi Cocktail) 50 ml Q12HP PRN PO GI UPSET 06/21/19 19:00 06/21/19 20:14 Latanoprost (Xalatan 0.005% Op Soln) 1 drop QHS OU 06/17/19 21:00 06/21/19 20:15 Lidocaine/ Diphenhydr/Alum/ Mg/Simeth (Magic Mouthwash) 5ml AC SSP 06/17/19 17:30 06/22/19 08:57 Menthol/Methyl Salicylate (Bengay Cream) 1 dose TID TOP 06/20/19 16:00 06/22/19 09:00 Nitroglycerin (Nitrostat (1/ 150)) 0.4 mg Q5MP PRN SL CHEST PAIN 06/17/19 16:15 Nystatin (Mycostatin Powder, Nystop) abdominal folds/groin BID TOP 06/17/19 21:00 06/22/19 09:01 Ondansetron HCl (Zofran Odt) 4 mg Q4HP PRN PO NAUSEA OR VOMITING 06/21/19 12:30 Potassium Chloride (K-Isabell 20 Meq Powder Packet) 40 meq TID GT 06/17/19 21:00 06/20/19 12:23 DC 06/20/19 09:23 Potassium Chloride (Micro-K Extencaps) 40 meq TID PO 06/20/19 16:00 06/21/19 16:18 Propranolol HCl (Inderal) 10 mg TID PO 06/22/19 09:00 Rifampin (Rifadin) 300 mg BID GT 06/17/19 21:00 06/20/19 12:24 DC 06/20/19 09:22 Rifampin (Rifadin) 300 mg BID PO 06/20/19 21:00 06/22/19 08:57 Risperidone (RisperDAL LIQUID) 0.5 mg BID GT 06/17/19 21:00 06/20/19 12:24 DC 06/20/19 09:23 Risperidone (RisperDAL LIQUID) 0.5 mg BID GT 06/17/19 21:00 06/17/19 20:25 DC Risperidone (RisperDAL) 0.25 mg BID PO 06/21/19 21:00 06/22/19 08:59 Risperidone (RisperDAL) 0.5 mg BID GT 06/20/19 12:24 06/20/19 12:25 DC Risperidone (RisperDAL) 0.5 mg BID GT 06/17/19 21:00 06/17/19 20:09 DC Risperidone (RisperDAL) 0.5 mg BID PO 06/20/19 21:00 06/21/19 15:24 DC 06/21/19 07:43 Saliva Substitute (Mouthkote) 2 sprays QID MT 06/22/19 13:00 Senna (Senokot) 1 tab QHS PO 06/21/19 21:00 Sodium Chloride (Saline Lock Flush) 10 ml ASDIRECTED PRN IV SEE LABEL COMMENTS 06/17/19 17:45 06/21/19 04:08 Sodium Chloride (Saline Lock Flush) 10 ml PICC IV 06/17/19 18:00 06/22/19 05:04 Sodium Chloride (Sodium Chloride) 1 gm TID PO 06/21/19 16:00 06/22/19 08:57 Torsemide (Demadex) 20 mg DAILY GT 06/18/19 09:00 06/20/19 12:25 DC 06/20/19 09:23 Torsemide (Demadex) 20 mg DAILY PO 06/21/19 09:00 06/22/19 08:59 Triamcinolone Acetonide (Kenalog 0.1% Cream) Apply to affected areas... BID TOP 06/21/19 21:00 07/05/19 09:01 06/22/19 09:00 Zolpidem Tartrate (Ambien) 5 mg QHSP PRN GT INSOMNIA 06/17/19 21:00 06/20/19 12:26 DC Zolpidem Tartrate (Ambien) 5 mg QHSP PRN PO INSOMNIA 06/20/19 12:30 SANJUANITA MOBLEY MD Jun 22, 2019 10:47
[2019-06-22] MEDS: SODIUM CHLORIDE 0.9% INJ 10 ML SYR IV PRN ×2 (11:29→18:44)
[2019-06-22] MEDS ORDERED: LIDOCAINE 2% JELLY 6 ML SYRINGE TOP SCH (11:30)
[2019-06-22] MEDS ORDERED: LIDOCAINE 2% JELLY 30 ML TOP SCH (11:45)
[2019-06-22 12:35] VITALS: BP 171/79
[2019-06-22] MEDS: PROPRANOLOL 10 MG TAB PO SCH ×3 (12:37→21:30)
[2019-06-22] MEDS: SALIVA SUBSTITUTE(MOUTHKOTE) BTL MT SCH ×3 (12:37→21:31)
[2019-06-22 14:00] VITALS: BP 121/66
[2019-06-22 17:23] VITALS: BP 116/58
[2019-06-22] MEDS: CETIRIZINE (ZyrTEC) 10 MG TAB PO SCH (17:25)
[2019-06-22 19:35] VITALS: BP 148/67
[2019-06-22] MEDS: SENNA 8.6 MG TAB (SENOKOT) PO SCH (21:28)
[2019-06-22] MEDS: ATORVASTATIN 20 MG TAB PO SCH (21:30)
[2019-06-22] MEDS: FAMOTIDINE 20 MG TAB PO SCH (21:30)
[2019-06-22] MEDS: LATANOPROST 0.005% OPHTH SOLN 2.5 ML OU SCH (21:31)
[2019-06-23] MEDS: ceFAZolin SOD 2 GM in IV 1 EA IV SCH ×3 (03:56→18:27)
[2019-06-23 06:20] VITALS: BP 154/74
[2019-06-23] MEDS: SODIUM CHLORIDE 0.9% INJ 10 ML SYR IV SCH ×2 (06:20→17:55)
[2019-06-23 07:32] LABS: HEMATOCRIT 30.7 % (36.0-47.0); HEMOGLOBIN 9.6 g/dl (12.0-15.5); MEAN CORPUSCULAR HEMOGLOBIN 28.8 pg (27.0-33.0); MEAN CORPUSCULAR HGB CONC 31.3 g/dl (32.0-36.5); MEAN CORPUSCULAR VOLUME 92.2 fl (80.0-96.0); PLATELET COUNT, AUTOMATED 491 10^3/uL (150-450); RED BLOOD COUNT 3.33 10^6/uL (4.00-5.40); WHITE BLOOD COUNT 11.5 10^3/uL (4.0-10.0)
[2019-06-23 07:54] LABS: ERYTHROCYTE SEDIMENTATION RATE 70 mm/hr (0-30)
[2019-06-23] MEDS: SODIUM CHLORIDE 1 GM TAB PO SCH ×3 (08:20→22:14)
[2019-06-23] MEDS: DOCUSATE SODIUM 100 MG CAP PO SCH ×3 (08:21→22:12)
[2019-06-23] MEDS: ACETAMINOPHEN 500 MG TAB PO SCH ×3 (08:21→22:13)
[2019-06-23] MEDS: TORSEMIDE 20 MG TAB PO SCH (08:21)
[2019-06-23] MEDS: APIXABAN 2.5 MG TAB (ELIQUIS) PO SCH ×2 (08:21→22:13)
[2019-06-23] MEDS: CETIRIZINE (ZyrTEC) 10 MG TAB PO SCH (08:21)
[2019-06-23] MEDS: CLOPIDOGREL 75 MG TAB PO SCH (08:22)
[2019-06-23] MEDS: PROPRANOLOL 10 MG TAB PO SCH ×3 (08:22→22:14)
[2019-06-23] MEDS: POTASSIUM CHLORIDE 10 MEQ SR TABLET PO SCH (08:22)
[2019-06-23] MEDS: POLYVINYL ALCOHOL OPHTH SOLN 15 ML(LIQUITEARS) OU SCH ×3 (08:23→22:15)
[2019-06-23] MEDS: ANALGESIC BALM CRM 120 GM TOP SCH ×3 (08:23→22:15)
[2019-06-23] MEDS: risperiDONE 0.25 MG TAB PO SCH (08:23)
[2019-06-23] MEDS: NYSTATIN 100,000 UNITS/GM TOPICAL PWD 15 GM TOP SCH ×2 (08:24→22:16)
[2019-06-23] MEDS: TRIAMCINOLONE ACET 0.1% CREAM 80 GM TOP SCH ×2 (08:24→22:16)
[2019-06-23] MEDS: MAGIC MOUTHWASH SUSPENSION BTL SSP SCH ×3 (08:25→17:53)
[2019-06-23] MEDS: SALIVA SUBSTITUTE(MOUTHKOTE) BTL MT SCH ×4 (08:25→22:14)
[2019-06-23] MEDS: SODIUM CHLORIDE 0.9% INJ 10 ML SYR IV PRN (12:10)
[2019-06-23 14:00] VITALS: BP 119/60
--- NOTE | 2019-06-23 16:15 | IPN ---
DATE OF SERVICE: 06/23/2019 She is an 83-year-old patient on the acute rehabilitation unit, having had a right CVA of occipital, cerebellar and frontoparietal. Strokes were likely from septic emboli. She was transferred from [facility] for acute rehabilitation. She has been treated for methicillin sensitive Staphylococcus aureus (MSSA) bacteremia with mitral valve endocarditis. Dr. Thornton has been consulted and currently continuing current medications. She has some dysphagia, which is improving slightly. She has a percutaneous endoscopic gastrostomy (PEG) tube in place. She is on Eliquis for atrial fibrillation. LABORATORY STUDIES: Her C-reactive protein today is down to 6.28 from 8.27, sedimentation rate is down to 70 from 91, white count is down to 11.5 from 11.9. She has a pruritic type rash, which Dr. Thortnon has started her on triamcinolone with some slight improvement and less itching. She had oral thrush, which is improved. OBJECTIVE: Blood pressure 138/72, pulse 72, respirations 18, temperature 98.3. GENERAL: The patient is pleasant and cooperative. Oriented to person and place. HEENT: Pupils are equal and reactive to light. Extraocular muscles intact. Sclerae clear. Conjunctivae normal. No facial asymmetry. Pharynx, gums and tongue pink and moist. Tongue is midline. NECK: Supple without lymphadenopathy, thyromegaly or goiter. Carotids are 2+ without bruit. CHEST: Clear to auscultation without wheeze or retraction. HEART: Regular with murmur or gallop. ABDOMEN: Soft, nontender. No masses, pulsations or bruits. No organomegaly. Bowel sounds positive. PEG tube in place. EXTREMITIES: Trace lower extremity edema. Peripheral pulses equal and palpable bilaterally. IMPRESSION/PLAN: 1. Rehabilitation. Continue physical therapy (PT) and occupational therapy (OT). Continue speech therapy for cognitive impairment dysphagia. Continue on level II diet and thins with PEG tube feeds if she eats less than 50%. 2. Strokes, most likely from septic emboli versus atrial fibrillation. She continues on Eliquis, statin and Plavix for secondary stroke prevention. 3. Endocarditis of the mitral valve, history of TAVR. Continues on Eliquis 2.5 mg by mouth twice a day, diltiazem and propranolol. 4. Coronary artery disease, status post stents. Continue Plavix. 5. Diastolic dysfunction. Continues with torsemide.
[2019-06-23 22:00] VITALS: BP 114/53
[2019-06-23] MEDS: SENNA 8.6 MG TAB (SENOKOT) PO SCH (22:13)
[2019-06-23] MEDS: ONDANSETRON 4 MG ORAL DISINTEGRATING TAB (Q0162 PER 1MG) PO PRN (22:13)
[2019-06-23] MEDS: ATORVASTATIN 20 MG TAB PO SCH (22:13)
[2019-06-23] MEDS: FAMOTIDINE 20 MG TAB PO SCH (22:14)
[2019-06-23] MEDS: LATANOPROST 0.005% OPHTH SOLN 2.5 ML OU SCH (22:14)
[2019-06-24] MEDS: ceFAZolin SOD 2 GM in IV 1 EA IV SCH ×3 (03:52→17:41)
[2019-06-24 06:00] VITALS: BP 149/67
[2019-06-24] MEDS: SODIUM CHLORIDE 0.9% INJ 10 ML SYR IV SCH ×2 (06:01→17:40)
[2019-06-24] MEDS: TORSEMIDE 20 MG TAB PO SCH (08:45)
[2019-06-24] MEDS: MAGIC MOUTHWASH SUSPENSION BTL SSP SCH ×3 (08:45→17:39)
[2019-06-24] MEDS: SALIVA SUBSTITUTE(MOUTHKOTE) BTL MT SCH ×4 (08:45→21:37)
[2019-06-24] MEDS: DOCUSATE SODIUM 100 MG CAP PO SCH ×3 (08:45→21:37)
[2019-06-24] MEDS: APIXABAN 2.5 MG TAB (ELIQUIS) PO SCH ×2 (08:46→21:36)
[2019-06-24] MEDS: SODIUM CHLORIDE 1 GM TAB PO SCH ×3 (08:46→21:37)
[2019-06-24] MEDS: ACETAMINOPHEN 500 MG TAB PO SCH ×3 (08:46→21:37)
[2019-06-24] MEDS: CLOPIDOGREL 75 MG TAB PO SCH (08:46)
[2019-06-24] MEDS: POTASSIUM CHLORIDE 10 MEQ SR TABLET PO SCH (08:46)
[2019-06-24] MEDS: CETIRIZINE (ZyrTEC) 10 MG TAB PO SCH (08:46)
[2019-06-24] MEDS: PROPRANOLOL 10 MG TAB PO SCH ×3 (08:47→21:37)
[2019-06-24] MEDS: ANALGESIC BALM CRM 120 GM TOP SCH ×3 (08:48→21:39)
[2019-06-24] MEDS: TRIAMCINOLONE ACET 0.1% CREAM 80 GM TOP SCH ×2 (08:48→21:38)
[2019-06-24] MEDS: NYSTATIN 100,000 UNITS/GM TOPICAL PWD 15 GM TOP SCH ×2 (08:48→21:38)
[2019-06-24] MEDS: POLYVINYL ALCOHOL OPHTH SOLN 15 ML(LIQUITEARS) OU SCH ×3 (08:49→21:39)
--- NOTE | 2019-06-24 10:28 | IPNPDOC ---
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 She is states she is generally sore in her pelvic area. REVIEW OF SYSTEMS: The following is a completed review of systems and has been reviewed. Review of systems otherwise unremarkable. PAIN: Patient self reports no pain EYES: No recent vision changes EARS, NOSE, & THROAT: No throat pain, or dysphagia, or rhinorrhea CARDIOVASCULAR: Denies chest pain or palpitations PULMONARY: Denies shortness of breath GASTROINTESTINAL: +constipation (resolved) GENITOURINARY: +urinary retention MUSCULOSKELETAL: left sided weakness NEUROLOGICAL:stroke with left sided neglect HEMATOLOGICAL: no easy bruising SKIN: PEG PSYCHIATRIC: Unremarkable. All other review of systems found to be negative. PHYSICAL EXAMINATION: VITAL SIGNS: Please see below. GENERAL: Pleasant and cooperative. No acute distress. HEENT: PERRL. Extraocular movements intact. Clear conjunctive CARDIOVASCULAR: Regular rate and rhythm. No murmurs, rubs, or gallops LUNGS: Clear to auscultation bilaterally. No wheezes. No rhonchi ABDOMEN: Soft, mildly distended, non-tender, hyperactive bowel sounds, +PEG NEUROLOGICAL: Alert and oriented times three. Cranial nerves II through XII grossly intact. Sensation grossly intact to light touch in all 4 limbs, extinction to touch on the LUE +clonus LLE, +babinski EXTREMITIES: 5\5 strength right upper extremity, 4/5 LUE with +pronator drift. 5\5 strength right lower extremity. 4/5 strength in left lower extremity. 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 Neuro: right occipital, cerebellar, and frontoparietal strokes likely from septic emboli vs Afib- c/u Eliquis, statin, and plavix for secondary stroke prevention -LUE paresis with dysphagia and mild neglect -c/u prozac for motor recovery 3. Cardio: endocarditis of MV, hx of TAVR last ECHO did not show vegetations on prosthetic valve, c/u antibiotics -Afib c/u Eliquis 2.5 BID and Diltiazem, propranolol added for tac -CAD s/p stents- Plavix -diastolic CHF grade 1, per patient had recent CHF exacerbation, c/u diuretics -medicine consulted 4. Resp: encourage incentive spirometry 5. ID: on Cefazolin and Rifampin MSSA bacteremia (blood cx positive 05-16-19) ID consulted, recs appreciated, first diagnosis of endocarditis on 06-13-19 via ECHO, weekly CMP/CRP/ESR, CBC 6. DVT ppx: eliquis 7. GI ppx: pepcid - optimize bowel meds -KUB 06-21-19 +stool retention and questionable ileus, however patient passing flatus and having bowel movements, c/u to monitor 9. : monitor PVRs, hx of bladder prolapse, currently with retention, c/u to IC with Coude catheter and lidocaine jelly to minimize pain 9. Psych: tapering off risperidone for agitation 10. Insomnia: Ambien prn 11. Hyponatremia: improving, will c/u to monitor, c/u NaCl tabs and fluid restriction 12. Pain: Tylenol 1g tid and menthol salicylate to S-I joints 10. Dispo: 07-12-19 to home Allergies Coded Allergies: Penicillins (Verified Allergy, Unknown, 06/17/19) bee venom protein (honey bee) (Verified Allergy, Unknown, 06/17/19) cephalexin (Verified Allergy, Unknown, 06/17/19) sulfamethoxazole (Verified Allergy, Unknown, 06/17/19) trimethoprim (Verified Allergy, Unknown, 06/17/19) Vital Signs Vital Signs Date Time Temp Pulse Resp B/P (MAP) Pulse Ox O2 Delivery O2 Flow Rate FiO2 06/24/19 08:47 84 149/67 06/24/19 06:00 97.7 18 97 Room Air Current Medications Current Medications Current Medications Medications (Trade) Dose Ordered Sig/Shaji Route PRN Reason Start Time Stop Time Status Last Admin Dose Admin Acetaminophen (Tylenol Suspension) 650 mg Q6HP PRN GT PAIN OR FEVER 06/17/19 16:15 06/20/19 12:20 DC 06/19/19 19:37 Acetaminophen (Tylenol Tab) 1,000 mg TID PO 06/20/19 12:20 06/20/19 12:20 DC Acetaminophen (Tylenol Tab) 1,000 mg TID PO 06/20/19 16:00 06/24/19 08:46 Albuterol/ Ipratropium (Duoneb (Ipr 0.5mg/Alb 2.5mg)) 3 ml Q4HP PRN NEB SOB/WHEEZING 06/17/19 16:15 Apixaban (Eliquis) 2.5 mg BID PO 06/17/19 21:00 06/24/19 08:46 Artificial Tears (Akwa Tears) 2 drop TID OU 06/17/19 21:00 06/24/19 08:49 Atorvastatin Calcium (Lipitor) 80 mg QHS GT 06/17/19 21:00 06/20/19 12:21 DC 06/19/19 19:29 Atorvastatin Calcium (Lipitor) 80 mg QHS PO 06/20/19 12:21 06/20/19 12:21 DC Atorvastatin Calcium (Lipitor) 80 mg QHS PO 06/20/19 21:00 06/23/19 22:13 Cefazolin Sodium/ Dextrose 2 gm/IV Miscellaneous Supplies 50 ml @ 75 mls/hr Q8H IV 06/17/19 19:00 06/24/19 03:52 Cetirizine HCl (ZyrTEC) 10 mg DAILY PO 06/22/19 09:00 06/24/19 08:46 Clopidogrel Bisulfate (PLAVix) 75 mg DAILY GT 06/18/19 09:00 06/20/19 12:21 DC 06/20/19 09:23 Clopidogrel Bisulfate (PLAVix) 75 mg DAILY PO 06/21/19 09:00 06/24/19 08:46 Diltiazem HCl (Cardizem) 60 mg Q6H GT 06/17/19 18:00 06/20/19 12:22 DC 06/20/19 11:54 Diltiazem HCl (Cardizem) 60 mg Q6H PO 06/20/19 18:00 06/24/19 06:01 Docusate Sodium (Colace) 100 mg TID PO 06/21/19 16:00 06/24/19 08:45 Famotidine (Pepcid) 20 mg QHS GT 06/17/19 21:00 06/20/19 12:22 DC 06/19/19 19:30 Famotidine (Pepcid) 20 mg QHS PO 06/20/19 21:00 06/23/19 22:14 Fluconazole (Diflucan) 200 mg DAILY GT 06/17/19 16:15 06/18/19 10:21 DC Heparin Sodium (Heparin (Flush)) 200 units ASDIRECTED PRN IV SEE LABEL COMMENTS 06/17/19 17:45 06/23/19 12:10 Heparin Sodium (Heparin (Flush)) 200 units PICC IV 06/17/19 18:00 06/24/19 06:01 Home Med (Med Rec Complete!) ASDIRECTED XX 06/17/19 16:45 06/17/19 16:47 DC Hydrocortisone (Hydrocortisone 2.5% Ointment) 1 dose Q6H PRN TOP ITCHING 06/17/19 18:00 Hyoscyamine/Lido/ Alumin/Mag/Simethi (Gi Cocktail) 50 ml Q12HP PRN PO GI UPSET 06/21/19 19:00 06/21/19 20:14 Latanoprost (Xalatan 0.005% Op Soln) 1 drop QHS OU 06/17/19 21:00 06/23/19 22:14 Lidocaine HCl (Glydo 2% JELLY) 1 dose ASDIRECTED TOP 06/22/19 11:30 Cancel Lidocaine HCl (Lidocaine 2% Jelly) 1 dose ASDIRECTED TOP 06/22/19 11:45 06/22/19 15:39 Lidocaine/ Diphenhydr/Alum/ Mg/Simeth (Magic Mouthwash) 5ml AC SSP 06/17/19 17:30 06/24/19 08:45 Menthol/Methyl Salicylate (Bengay Cream) 1 dose TID TOP 06/20/19 16:00 06/23/19 22:15 Miscellaneous (Unresolved Clarification Entry) SEE LABEL COMMENTS DAILY XX 06/23/19 09:00 06/24/19 07:02 DC Miscellaneous (Unresolved Clarification Entry) SEE LABEL COMMENTS DAILY XX 06/24/19 09:00 Nitroglycerin (Nitrostat (1/ 150)) 0.4 mg Q5MP PRN SL CHEST PAIN 06/17/19 16:15 Nystatin (Mycostatin Powder, Nystop) abdominal folds/groin BID TOP 06/17/19 21:00 06/24/19 08:48 Ondansetron HCl (Zofran Odt) 4 mg Q4HP PRN PO NAUSEA OR VOMITING 06/21/19 12:30 06/23/19 22:13 Potassium Chloride (K-Isabell 20 Meq Powder Packet) 40 meq TID GT 06/17/19 21:00 06/20/19 12:23 DC 06/20/19 09:23 Potassium Chloride (Micro-K Extencaps) 40 meq DAILY PO 06/23/19 09:00 06/24/19 08:46 Potassium Chloride (Micro-K Extencaps) 40 meq TID PO 06/20/19 16:00 06/22/19 11:38 DC 06/21/19 16:18 Propranolol HCl (Inderal) 10 mg TID PO 06/22/19 09:00 06/24/19 08:47 Rifampin (Rifadin) 300 mg BID GT 06/17/19 21:00 06/20/19 12:24 DC 06/20/19 09:22 Rifampin (Rifadin) 300 mg BID PO 06/20/19 21:00 06/24/19 08:46 Risperidone (RisperDAL LIQUID) 0.5 mg BID GT 06/17/19 21:00 06/20/19 12:24 DC 06/20/19 09:23 Risperidone (RisperDAL LIQUID) 0.5 mg BID GT 06/17/19 21:00 06/17/19 20:25 DC Risperidone (RisperDAL) 0.25 mg BID PO 06/21/19 21:00 06/23/19 10:31 DC 06/23/19 08:23 Risperidone (RisperDAL) 0.5 mg BID GT 06/20/19 12:24 06/20/19 12:25 DC Risperidone (RisperDAL) 0.5 mg BID GT 06/17/19 21:00 06/17/19 20:09 DC Risperidone (RisperDAL) 0.5 mg BID PO 06/20/19 21:00 06/21/19 15:24 DC 06/21/19 07:43 Saliva Substitute (Mouthkote) 2 sprays QID MT 06/22/19 13:00 06/24/19 08:45 Senna (Senokot) 1 tab QHS PO 06/21/19 21:00 06/23/19 22:13 Sodium Chloride (Saline Lock Flush) 10 ml ASDIRECTED PRN IV SEE LABEL COMMENTS 06/17/19 17:45 06/23/19 12:10 Sodium Chloride (Saline Lock Flush) 10 ml PICC IV 06/17/19 18:00 06/24/19 06:01 Sodium Chloride (Sodium Chloride) 1 gm TID PO 06/21/19 16:00 06/24/19 08:46 Tamsulosin HCl (Flomax) 0.4 mg QHS PO 06/24/19 21:00 UNV Torsemide (Demadex) 20 mg DAILY GT 06/18/19 09:00 06/20/19 12:25 DC 06/20/19 09:23 Torsemide (Demadex) 20 mg DAILY PO 06/21/19 09:00 06/24/19 08:45 Triamcinolone Acetonide (Kenalog 0.1% Cream) Apply to affected areas... BID TOP 06/21/19 21:00 07/05/19 09:01 06/24/19 08:48 Zolpidem Tartrate (Ambien) 5 mg QHSP PRN GT INSOMNIA 06/17/19 21:00 06/20/19 12:26 DC Zolpidem Tartrate (Ambien) 5 mg QHSP PRN PO INSOMNIA 06/20/19 12:30 SANJUANITA MOBLEY MD Jun 24, 2019 10:28
[2019-06-24 12:02] LABS: BASO # 0.1 10^3/uL (0.0-0.2); BASO % 0.4 % (0.0-1.0); HEMATOCRIT 29.8 % (36.0-47.0); HEMOGLOBIN 9.6 g/dl (12.0-15.5); LYMPH # 0.9 10^3/uL (1.5-5.0); LYMPH % 7.5 % (24.0-44.0); MEAN CORPUSCULAR HEMOGLOBIN 29.4 pg (27.0-33.0); MEAN CORPUSCULAR HGB CONC 32.2 g/dl (32.0-36.5); MEAN CORPUSCULAR VOLUME 91.1 fl (80.0-96.0); MONO # 0.9 10^3/uL (0.0-0.8); MONO % 7.5 % (0.0-5.0); NEUTROPHILS # 9.3 10^3/uL (1.5-8.5); NEUTROPHILS % 76.1 % (36.0-66.0); PLATELET COUNT, AUTOMATED 518 10^3/uL (150-450); RED BLOOD COUNT 3.27 10^6/uL (4.00-5.40); WHITE BLOOD COUNT 12.2 10^3/uL (4.0-10.0)
[2019-06-24 12:25] LABS: BLOOD UREA NITROGEN 16 MG/DL (7-18); C REACTIVE PROTEIN QUANTITATIV 7.09 MG/DL (0.00-0.30); CALCIUM LEVEL 8.5 MG/DL (8.8-10.2); CARBON DIOXIDE LEVEL 26 MEQ/L (21-32); CHLORIDE LEVEL 99 MEQ/L (98-107); CREATININE FOR GFR 0.84 MG/DL (0.55-1.30); GLOMERULAR FILTRATION RATE > 60.0 (>32); GLUCOSE, FASTING 97 MG/DL (70-100); SODIUM LEVEL 136 MEQ/L (136-145)
[2019-06-24 14:00] VITALS: BP 122/59
[2019-06-24] MEDS: ONDANSETRON 4 MG ORAL DISINTEGRATING TAB (Q0162 PER 1MG) PO PRN (19:45)
--- NOTE | 2019-06-24 20:16 | IPN ---
DATE: 06/24/2019 SUBJECTIVE: Ms. Conley was seen and examined this morning. She currently has no new complaints regarding her endocarditis. She denies any chills or fevers. She had a repeat erythrocyte sedimentation rate, which was 70, decreased from 91. Will continue to trend. Patient currently on cefazolin every 8 hours. She is currently denying any shortness of breath, chest pain, nausea, vomiting, diarrhea or constipation. OBJECTIVE: VITAL SIGNS: Temperature 98.2, pulse 76, respiratory rate 20, blood pressure 122/59, pulse oximetry 100% on room air. GENERAL: Patient is awake, alert and oriented. She does not appear in any acute distress. She is sitting comfortably in her chair. She is conversant. HEENT: Atraumatic, normocephalic. The patient's eyes are nonicteric. Trachea is midline. CARDIOVASCULAR: Normal S1, S2. She has irregularly irregular rhythm with a normal rate. She has a 2/6 systolic ejection murmur. There are no clicks or rubs. There has no jugular venous distention (JVD). PULMONARY: Patient has clear vesicular breath sounds bilaterally. She has good respiratory effort. There are no wheezes, rhonchi or rales. She has symmetric chest expansion. ABDOMEN: Patient's abdomen is soft. It is nondistended. It is nontender throughout. She has no rebound tenderness or guarding. She has normoactive bowel sounds. EXTREMITIES: Patient has no edema. There is 2+ posterior, tibial and radial pulses bilaterally. Her rash that was previously on her arms is now not present anymore. NEUROLOGICAL: The patient has no focal neurological deficits. PSYCHIATRIC: Patient's mood and affect appear appropriate. LABORATORY DATA: Hematology: White blood cells 12.2, hemoglobin 9.6, hematocrit 29.8, platelet count 518. Erythrocyte sedimentation rate 70. Chemistries: Sodium 136, potassium 4.0, chloride 99, CO2 26, BUN 16, creatinine 24, fasting glucose 97. Calcium 8.5. C-reactive protein 7.09. ASSESSMENT AND PLAN: 1. Endocarditis with methicillin-sensitive staphylococcus aureus bacteremia on 05/16/2019. As stated previously, the patient has an MSSA bacteremia, found to have some mitral valve vegetation on transesophageal echocardiogram while she was hospitalized at [facility]. She was previously started on rifampin and cefazolin. Her culture was negative on 05/19/2019. Her current end of treatment date is 06/30/2019. Patient is to continue intravenous (IV) antibiotics until 06/30/2019. She will need a repeat transesophageal echocardiogram to look for resolution of her vegetation. 2. Fara infection. The patient is currently receiving Nystatin powder for her inguinal folds. 3. Eczematous rash. The patient previous had a full body pruritic rash which has been treated with triamcinolone cream. Her rash currently looks like it is resolving. Will continue triamcinolone cream applied twice daily to her affected areas for 1-2 weeks.
[2019-06-24 20:30] VITALS: BP 134/70
[2019-06-24] MEDS: SENNA 8.6 MG TAB (SENOKOT) PO SCH (21:37)
[2019-06-24] MEDS: TAMSULOSIN 0.4 MG CAP PO SCH (21:37)
[2019-06-24] MEDS: FAMOTIDINE 20 MG TAB PO SCH (21:37)
[2019-06-24] MEDS: ATORVASTATIN 20 MG TAB PO SCH (21:37)
[2019-06-24] MEDS: LATANOPROST 0.005% OPHTH SOLN 2.5 ML OU SCH (21:39)
[2019-06-25] MEDS: ceFAZolin SOD 2 GM in IV 1 EA IV SCH ×3 (02:51→18:57)
[2019-06-25 05:30] VITALS: BP 119/59
[2019-06-25] MEDS: SODIUM CHLORIDE 0.9% INJ 10 ML SYR IV SCH ×2 (05:35→18:12)
[2019-06-25] MEDS: ONDANSETRON 4 MG ORAL DISINTEGRATING TAB (Q0162 PER 1MG) PO PRN ×2 (08:40→16:41)
[2019-06-25] MEDS: MAGIC MOUTHWASH SUSPENSION BTL SSP SCH ×3 (08:40→16:40)
[2019-06-25] MEDS: ACETAMINOPHEN 500 MG TAB PO SCH ×4 (08:40→21:52)
[2019-06-25] MEDS: DOCUSATE SODIUM 100 MG CAP PO SCH ×3 (10:11→21:51)
[2019-06-25] MEDS: SODIUM CHLORIDE 1 GM TAB PO SCH ×3 (10:11→21:51)
[2019-06-25] MEDS: CLOPIDOGREL 75 MG TAB PO SCH (10:11)
[2019-06-25] MEDS: APIXABAN 2.5 MG TAB (ELIQUIS) PO SCH ×2 (10:11→21:51)
[2019-06-25] MEDS: PROPRANOLOL 10 MG TAB PO SCH ×3 (10:12→21:51)
[2019-06-25] MEDS: TORSEMIDE 20 MG TAB PO SCH (10:12)
[2019-06-25] MEDS: CETIRIZINE (ZyrTEC) 10 MG TAB PO SCH (10:13)
[2019-06-25] MEDS: POTASSIUM CHLORIDE 10 MEQ SR TABLET PO SCH (10:13)
[2019-06-25] MEDS: POLYVINYL ALCOHOL OPHTH SOLN 15 ML(LIQUITEARS) OU SCH ×3 (10:13→21:53)
[2019-06-25] MEDS: TRIAMCINOLONE ACET 0.1% CREAM 80 GM TOP SCH ×2 (10:14→21:55)
[2019-06-25] MEDS: NYSTATIN 100,000 UNITS/GM TOPICAL PWD 15 GM TOP SCH ×2 (10:14→21:57)
[2019-06-25] MEDS: SALIVA SUBSTITUTE(MOUTHKOTE) BTL MT SCH ×4 (10:15→21:00)
[2019-06-25] MEDS: ANALGESIC BALM CRM 120 GM TOP SCH ×3 (10:15→21:53)
[2019-06-25 14:00] VITALS: BP 117/58
[2019-06-25 19:40] VITALS: BP 141/65
[2019-06-25] MEDS: SODIUM CHLORIDE 0.9% INJ 10 ML SYR IV PRN (20:05)
[2019-06-25] MEDS ORDERED: FLEET ENEMA PR PRN (20:15)
[2019-06-25 20:35] VITALS: BP 147/69
[2019-06-25] MEDS: FAMOTIDINE 20 MG TAB PO SCH ×2 (21:00→21:51)
[2019-06-25] MEDS: SENNA 8.6 MG TAB (SENOKOT) PO SCH ×2 (21:00→21:51)
[2019-06-25] MEDS: ATORVASTATIN 20 MG TAB PO SCH ×2 (21:00→21:52)
[2019-06-25] MEDS: TAMSULOSIN 0.4 MG CAP PO SCH ×2 (21:00→21:52)
[2019-06-25] MEDS: LATANOPROST 0.005% OPHTH SOLN 2.5 ML OU SCH (21:53)
[2019-06-25] MEDS: ONDANSETRON 4MG/2ML VIAL (J2405) IV PRN (22:30)
[2019-06-25 23:29] VITALS: BP 149/64
[2019-06-26] MEDS: ceFAZolin SOD 2 GM in IV 1 EA IV SCH ×2 (03:03→11:42)
[2019-06-26] MEDS: SODIUM CHLORIDE 0.9% INJ 10 ML SYR IV PRN ×2 (03:43→04:27)
[2019-06-26] MEDS: ONDANSETRON 4MG/2ML VIAL (J2405) IV PRN ×2 (04:27→11:01)
[2019-06-26] MEDS: SODIUM CHLORIDE 0.9% INJ 10 ML SYR IV SCH (05:03)
[2019-06-26 05:10] VITALS: BP 152/65
[2019-06-26] MEDS: MAGIC MOUTHWASH SUSPENSION BTL SSP SCH ×2 (07:30→11:12)
[2019-06-26] MEDS: SODIUM CHLORIDE 1 GM TAB PO SCH (08:43)
[2019-06-26] MEDS: ACETAMINOPHEN 500 MG TAB PO SCH ×2 (08:43→09:00)
[2019-06-26] MEDS: POTASSIUM CHLORIDE 10 MEQ SR TABLET PO SCH ×2 (08:44→09:00)
[2019-06-26] MEDS: CLOPIDOGREL 75 MG TAB PO SCH (08:44)
[2019-06-26] MEDS: DOCUSATE SODIUM 100 MG CAP PO SCH (08:44)
[2019-06-26] MEDS: CETIRIZINE (ZyrTEC) 10 MG TAB PO SCH ×2 (08:45→09:00)
[2019-06-26] MEDS: TORSEMIDE 20 MG TAB PO SCH ×2 (08:45→09:00)
[2019-06-26 08:46] VITALS: BP 150/70
[2019-06-26] MEDS: PROPRANOLOL 10 MG TAB PO SCH (08:46)
[2019-06-26] MEDS: APIXABAN 2.5 MG TAB (ELIQUIS) PO SCH ×2 (08:47→09:00)
[2019-06-26] MEDS: POLYVINYL ALCOHOL OPHTH SOLN 15 ML(LIQUITEARS) OU SCH (08:47)
[2019-06-26] MEDS: NYSTATIN 100,000 UNITS/GM TOPICAL PWD 15 GM TOP SCH (08:48)
[2019-06-26] MEDS: SALIVA SUBSTITUTE(MOUTHKOTE) BTL MT SCH ×2 (08:48→11:12)
[2019-06-26] MEDS: TRIAMCINOLONE ACET 0.1% CREAM 80 GM TOP SCH (08:48)
[2019-06-26] MEDS: ANALGESIC BALM CRM 120 GM TOP SCH (09:00)
[2019-06-26 09:15] VITALS: BP 150/70
[2019-06-26 12:37] LABS: BASO # 0.1 10^3/uL (0.0-0.2); BASO % 0.4 % (0.0-1.0); EOS # 0.8 10^3/uL (0.0-0.5); HEMATOCRIT 30.2 % (36.0-47.0); HEMOGLOBIN 9.4 g/dl (12.0-15.5); LYMPH # 1.2 10^3/uL (1.5-5.0); LYMPH % 8.9 % (24.0-44.0); MEAN CORPUSCULAR HEMOGLOBIN 28.4 pg (27.0-33.0); MEAN CORPUSCULAR HGB CONC 31.1 g/dl (32.0-36.5); MEAN CORPUSCULAR VOLUME 91.2 fl (80.0-96.0); MONO # 0.9 10^3/uL (0.0-0.8); MONO % 7.1 % (0.0-5.0); NEUTROPHILS # 10.1 10^3/uL (1.5-8.5); NEUTROPHILS % 77.2 % (36.0-66.0); PLATELET COUNT, AUTOMATED 468 10^3/uL (150-450); RED BLOOD COUNT 3.31 10^6/uL (4.00-5.40); WHITE BLOOD COUNT 13.1 10^3/uL (4.0-10.0)
[2019-06-26 13:00] LABS: ERYTHROCYTE SEDIMENTATION RATE 96 mm/hr (0-30)
[2019-06-26 13:07] LABS: BLOOD UREA NITROGEN 13 MG/DL (7-18); CARBON DIOXIDE LEVEL 30 MEQ/L (21-32); CHLORIDE LEVEL 99 MEQ/L (98-107); CREATININE FOR GFR 0.78 MG/DL (0.55-1.30); GLOMERULAR FILTRATION RATE > 60.0 (>32); GLUCOSE, FASTING 116 MG/DL (70-100); POTASSIUM SERUM 2.8 MEQ/L (3.5-5.1); SODIUM LEVEL 136 MEQ/L (136-145)
[2019-06-26 13:08] LABS: ALBUMIN 2.5 GM/DL (3.2-5.2); ALT/SGPT 8 U/L (12-78); BILIRUBIN,TOTAL 0.4 MG/DL (0.2-1.0); CALCIUM LEVEL 8.4 MG/DL (8.8-10.2); CK-MB VALUE MASS 1.7 NG/ML (<3.6); CPK CREATINE PHOSPHOKINASE 50 U/L (26-192); FREE THYROXINE INDEX 3.8 % (1.3-4.8); T UPTAKE 34 % (30-39); THYROXINE (T4) 11.2 UG/DL (4.5-12.0); TOTAL PROTEIN 6.4 GM/DL (6.4-8.2); TROPONIN I 0.04 NG/ML (< 0.10)
--- NOTE | 2019-06-26 15:17 | ECGEPIP ---
[facility] Test Date: 2019-06-26 Pat Name: JHON GOMEZ Department: Room: [place] [address] Gender: Female Certified Physician Assistant: : [id number] Requested By: YESENIA Reyes Order Number: [id number] Reading MD: Eleni Berg Measurements Intervals [place] Rate: 156 P: ID: 0 QRS: -36 QRSD: 142 T: 101 QT: 320 QTc: 517 Interpretive Statements ATRIAL FIBRILLATION WITH RAPID VENTRICULAR RESPONSE MARKED LEFT AXIS DEVIATION LEFT BUNDLE BRANCH BLOCK NO PRIOR Electronically Signed on 06-26-2019 15:16:29 EST by Eleni Berg
--- NOTE | 2019-06-26 16:26 | DS.PDOC ---
Discharge Summary General Date of Admission Jun 17, 2019 at 15:00 Date of Discharge 06/26/19 Discharge Summary PROCEDURES PERFORMED DURING STAY: [None]. DISCHARGE DIAGNOSES: endocarditis afib rvr cad/nstemi/stents COMPLICATIONS/CHIEF COMPLAINT: Right Cva. HISTORY OF PRESENT ILLNESS: Transferred from [facility] for rehab after cva, endocarditis, afib, sepsis. Hospital stay complicated here with rapid afib/left chest pain, therefore discharged to PCU for further eval and treatment. See H&P for full details. DISCHARGE MEDICATIONS: Please see below. ALLERGIES: Please see below. PHYSICAL EXAMINATION ON DISCHARGE: VITAL SIGNS: Please see below. GENERAL: nad HEENT: NC/AT Lungs: CTA B/L Heart: +S1S2, RRR Abd: soft, NT, +BS, PEG in place LABORATORY DATA: Please see below. ACTIVITY: [As tolerated]. DIET: mechanical soft DISCHARGE PLAN: transfer to acute hospital DISPOSITION: 02 Xfer To Acute Hosp. DISCHARGE INSTRUCTIONS: 1. further direction pending clinical course DISCHARGE CONDITION: acute TIME SPENT ON DISCHARGE: 35] minutes. Vital Signs/I&Os Vital Signs Date Time Temp Pulse Resp B/P (MAP) Pulse Ox O2 Delivery O2 Flow Rate FiO2 06/26/19 09:15 81 150/70 (96) 06/26/19 05:10 99.0 19 98 Room Air I&O- Last 24 Hours up to 6 AM 06/26/19 05:59 Intake Total 980 ml Output Total 970 ml Balance 10 ml Laboratory Data Labs 24H Laboratory Tests 2 06/26/19 12:25: Immature Granulocyte % (Auto) 0.4, Neutrophils (%) (Auto) 77.2H, Lymphocytes (%) (Auto) 8.9L, Monocytes (%) (Auto) 7.1H, Eosinophils (%) (Auto) 6.0H, Basophils (%) (Auto) 0.4, Neutrophils # (Auto) 10.1H, Lymphocytes # (Auto) 1.2L, Monocytes # (Auto) 0.9H, Eosinophils # (Auto) 0.8H, Basophils # (Auto) 0.1, Nucleated Red Blood Cells % (auto) 0.0, Erythrocyte Sedimentation Rate 96H, Anion Gap 7L, Glomerular Filtration Rate > 60.0, Calcium Level 8.4L, Total Bilirubin 0.4, Aspartate Amino Transf (AST/SGOT) 31, Alanine Aminotransferase (ALT/SGPT) 8L, Alkaline Phosphatase 153H, Total Creatine Kinase 50, Creatine Kinase MB 1.7, Creatine Kinase MB Relative Index 3.40, Troponin I 0.04, C-Reactive Protein, Quantitative 11.50H, Total Protein 6.4, Albumin 2.5L, Albumin/Globulin Ratio 0.64L, Thyroid Stimulating Hormone (TSH) 2.140, Free Thyroxine Index 3.8, Thyr oxine (T4) 11.2, Triiodothyronine (T3) Uptake 34 CBC/BMP Laboratory Tests 06/26/19 12:25 Discharge Medications Scheduled Apixaban (Eliquis) 2.5 Mg Tablet, 2.5 MG GT BID, (Reported) STARTED AT [facility] Atorvastatin Calcium (Atorvastatin Calcium) 80 Mg Tablet, 80 MG GT QHS, (Repor librado) HOME MED Carvedilol (Carvedilol) 6.25 Mg Tablet, 6.25 MG GT TID, (Reported) HOME MED Cefazolin Sodium/Dextrose,Iso (Cefazolin 2 G/100 ml-Dextrose) 2 Gm/100 Ml Froz.piggy, 2 GM IV TID, (Reported) STARTED AT [facility] Clopidogrel Bisulfate (Plavix) 75 Mg Tablet, 75 MG GT DAILY, (Reported) Diltiazem HCl (Diltiazem HCl) 60 Mg Tablet, 60 MG GT Q6H, (Reported) STARTED AT [facility] Famotidine (Famotidine) 20 Mg Tablet, 20 MG GT QHS, (Reported) Latanoprost (Xalatan) 0.005% 2.5ML Drops, 1 DROP OU QHS, (Reported) Losartan Potassium (Losartan Potassium) 50 Mg Tablet, 50 MG PO DAILY, (Reported) HOME MED Nystatin (Nystatin Oral Susp) 100,000 Unit/1 Ml Oral.susp, 5 ML SS QID, (Reported) STARTED AT [facility] Nystatin (Nystatin Powder) 15 Gm Powder, 1 DOSE TOP TID, (Reported) APPLY TO GROIN AREA - STARTED AT [facility] Pantoprazole Sodium (Pantoprazole Sodium) 40 Mg Tablet.dr, 40 MG PO DAILY, (Reported) HOME MED Potassium Chloride (Potassium Chloride) 20 Meq Tablet.er, 40 MEQ GT TID, (Reported) Rifampin (Rifampin) 300 Mg Capsule, 300 MG GT Q12H, (Reported) STARTED AT [facility] Risperidone (Risperidone) 0.5 Mg Tablet, 0.5 MG GT TID, (Reported) STARTED AT [facility] Torsemide (Torsemide) 20 Mg Tablet, 20 MG GT DAILY, (Reported) STARTED AT [facility] Scheduled PRN Acetaminophen (Children's Tylenol) 160 Mg/5 Ml Oral.susp, 640 MG GT Q4H PRN for PAIN / FEVER, (Reported) STARTED AT [facility] Bisacodyl (Bisacodyl) 10 Mg Supp.rect, 10 MG DE DAILY PRN for CONSTIPATION, (Reported) Carboxymethylcellulose Sodium (Refresh Tears) 15 Ml Drops, 1 DROP OU Q3HP PRN for DRY EYES, (Reported) Ipratropium/Albuterol Sulfate (Iprat-Albut 0.5-3(2.5) mg/3 ml) 3 Ml Ampul.neb, 1 SAL INH Q4H PRN for SHORTNESS OF BREATH, (Reported) Nitroglycerin (Nitrostat) 0.4 Mg Tab.subl, 0.4 MG SL NITRO PRN for CHEST PAIN, (Reported) Allergies Coded Allergies: Penicillins (Verified Allergy, Unknown, 06/17/19) bee venom protein (honey bee) (Verified Allergy, Unknown, 06/17/19) cephalexin (Verified Allergy, Unknown, 06/17/19) sulfamethoxazole (Verified Allergy, Unknown, 06/17/19) trimethoprim (Verified Allergy, Unknown, 06/17/19) YESENIA FERNANDES MD Jun 26, 2019 16:26
--- NOTE | 2019-06-27 11:15 | REP ---
MRI brain: 06/25/2019. New indication: Intracranial hemorrhage. Comparison: None. Technique: Multiplanar short and long TR sequences of the brain were obtained without IV Gadolinium. Findings: Image quality is degraded by patient motion. There is no intracranial mass effect or hydrocephalous. Diffuse volume loss is present. Left greater than right mastoid effusions are present. The craniocervical junction is unremarkable. There is a questionable punctate focus of restricted diffusion within the corpus callosum. Multiple additional DWI right lesions are present most consistent with T2 shine through. There may be weak restricted diffusion within the high right frontoparietal region. There are multiple areas of elevated T2 signal scattered throughout the cerebral hemisphere white matter. Chronic right cerebellar and right [employer] SAF[employer] infarctions are present. Susceptibility artifact posteriorly on the left renders evaluation of this anatomy suboptimal. There is no evidence of intracranial hemorrhage. Impression: Motion abandon study. Suspected subacute corpus callosal and high right frontoparietal infarctions without mass effect. Multiple chronic infarctions. Age-related volume loss and sequelae of chronic microangiopathic ischemic disease. Mastoid effusions. Electronically Signed by Feliz Soliz DO 06/27/2019 11:06 A
== END 2019-06-26 13:00 | disposition short-term general hospital (02) | DRG 57 ==
LOC: M PM&R 06-17 15:00
PROVIDERS: ADMIT Physical Medicine & Rehabilitation; ATTEND Physical Medicine & Rehabilitation
DX: I69.354 Hemiplegia and hemiparesis following cerebral infarction affecting left non-dominant side (principal); I50.32 Chronic diastolic (congestive) heart failure; B37.0 Candidal stomatitis; E87.1 Hypo-osmolality and hyponatremia; I69.391 Dysphagia following cerebral infarction; I25.10 Atherosclerotic heart disease of native coronary artery without angina pectoris; R07.89 Other chest pain; K21.9 Gastro-esophageal reflux disease without esophagitis; L30.9 Dermatitis, unspecified; R33.9 Retention of urine, unspecified; I25.2 Old myocardial infarction; I48.91 Unspecified atrial fibrillation; B37.2 Candidiasis of skin and nail; K59.00 Constipation, unspecified; I11.0 Hypertensive heart disease with heart failure; G47.00 Insomnia, unspecified; R13.10 Dysphagia, unspecified; Z93.1 Gastrostomy status; Z79.01 Long term (current) use of anticoagulants; Z79.899 Other long term (current) drug therapy; Z88.0 Allergy status to penicillin; Z95.5 Presence of coronary angioplasty implant and graft; Z95.1 Presence of aortocoronary bypass graft; Z88.1 Allergy status to other antibiotic agents; Z88.2 Allergy status to sulfonamides; Z91.030 Bee allergy status; Z88.8 Allergy status to other drugs, medicaments and biological substances; Z95.2 Presence of prosthetic heart valve

== ENCOUNTER 2019-06-26 12:23 | Inpatient (IN) | payer MEDICARE, BC, OTHER ==
[~2019-06-26] VITALS: Ht 165.1 cm; Wt 69.5 kg
[~2019-06-26 12:23] MED LIST: ACET160O13 GT; ATOR80TA59 GT; BISA10SU PR; CARV6.25 GT; CEFA1SOL IV; DILT1TAB12 GT; ELIQ2.5T GT; FAMO1TAB11 GT; IPRA0.00 INH; LOSA50TA88 PO; NITR4TASL SL; NYST1POW9 TOP; NYST50SS SS; PANT-23 PO; PLAV1TAB2 GT; POTA1TAB14 GT; REFR0.5D8 OU; RIFA300C3 GT; RISP0.5T3 GT; TORS20TA2 GT; XALA0.007 OU
[2019-06-26] MEDS ORDERED: DIGOXIN INJ 0.5 MG/2 ML AMP (J1160) IV STA (12:32)
[2019-06-26 12:49] VITALS: BP 129/60
[2019-06-26] MEDS ORDERED: NITROGLYCERIN 0.4 MG SUBL TABLET SL PRN (13:30)
[2019-06-26] MEDS ORDERED: IPRATROPIUM 0.5MG/ALBUTEROL 2.5MG INH SOL UD 3ML (DUONEB)(J7620) INH PRN (13:30)
[2019-06-26] MEDS ORDERED: BISACODYL 10 MG SUPP PR PRN (13:30)
--- NOTE | 2019-06-26 13:35 | HPEPDOC ---
[facility] Medical History & Physical Date of Admission Jun 26, 2019 Date of Service: Jun 26, 2019 History and Physical CHIEF COMPLAINT: afib with RVR HISTORY OF PRESENT ILLNESS: 83 yo female with PMHx TAVR 2017, CAD/stents 2017, NSTEMI, HTN, originally presented to [facility] 05/16/19 for lethargy/AMS/fever/new afib and admitted for sepsis. Found to have elevated BNP and troponinemia without ST elevations,and bacteremia. Started on Rocephin/genta/vanc, concerned for endocarditis. TTE 05/18/19 showed no vegetations, cultures showed MSSA, antibiotics switched to Ancef and Rifampin. Found to have worsening mentation, and found to have right occipital lobe infarct, right cerebellar hemisphere/frontoparietal signal abnormalities with ring enhancing lesion suspicious for neoplasm versus infectious emboli. Subsequent TTI 06/13/19 after developing bradycardia and Wenckebach showed "large vegetation seen prolapsing into the right atrium" "well seated stent mounted bioprosthetic valve". Report taken from previous dictation, and is not clear, but evidently definitely showed a vegetation. She continued to have poor PO intake with dysphagia and PEG was placed on 06/03/19, but PO upgraded to "level two?" and thins prior to discharge. She did have an episode of decompensated CHF prior to discharge, treated with diuretic. She had impairments in mobility and ADL, and deemed medically appropriate to discharge to ARU on 06/17/19. Today, called by nursing to inform of tachycardia. Patient also has been complaining of nausea from yesterday. ECG obtained showing rapid-afib. Patient complained of left sided chest pain. Patient transferred to ICU. On arrival she is normocardic with normal blood pressures. Chest pain resolved. Extensive discussion with regarding events, as well as code status. He is adamant regarding full code. 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 REVIEW OF SYSTEMS: As per HPI HOME MEDICATIONS: Please see below. PHYSICAL EXAMINATION: VITAL SIGNS: See below GENERAL APPEARANCE: NAD, lying comfortably in bed; previously pale - appears to have resolved HEENT: NC/AT CARDIOVASCULAR: +S1S2, RRR - previously tachy/irregular LUNGS: CTA B/L ABDOMEN: soft, NT, +BS, PEG tube in place. PSYCHIATRIC: AAOx3 LABORATORY DATA: See below. MICROBIOLOGY: Please see below. ASSESSMENT: 83 yo female with extensive cardiac history, CVA, bacteremia/ endocarditis, transferred from ARU to PCU for afib RVR. PLAN: #bacteremia/endocarditis - continue Abx - f/u ID #afib with RVR - resolved - continue telemetry monitoring - a/c with DOAC #electrolyte derangement - replete and follow #CVA - continue PT/OT #dysphagia - resume previous diet, use PEG as needed #CAD/NSTEMI - continue medical therapy #HTN - continue medical therapy #DVT prophylaxis - as above - on DOAC Home Medications Scheduled Apixaban (Eliquis) 2.5 Mg Tablet, 2.5 MG GT BID STARTED AT [facility] Atorvastatin Calcium (Atorvastatin Calcium) 80 Mg Tablet, 80 MG GT QHS HOME MED Carvedilol (Carvedilol) 6.25 Mg Tablet, 6.25 MG GT TID HOME MED Cefazolin Sodium/Dextrose,Iso (Cefazolin 2 G/100 ml-Dextrose) 2 Gm/100 Ml Froz.piggy, 2 GM IV TID STARTED AT [facility] Clopidogrel Bisulfate (Plavix) 75 Mg Tablet, 75 MG GT DAILY Diltiazem HCl (Diltiazem HCl) 60 Mg Tablet, 60 MG GT Q6H STARTED AT [facility] Famotidine (Famotidine) 20 Mg Tablet, 20 MG GT QHS Latanoprost (Xalatan) 0.005% 2.5ML Drops, 1 DROP OU QHS Losartan Potassium (Losartan Potassium) 50 Mg Tablet, 50 MG PO DAILY HOME MED Nystatin (Nystatin Oral Susp) 100,000 Unit/1 Ml Oral.susp, 5 ML SS QID STARTED AT [facility] Nystatin (Nystatin Powder) 15 Gm Powder, 1 DOSE TOP TID APPLY TO GROIN AREA - STARTED AT [facility] Pantoprazole Sodium (Pantoprazole Sodium) 40 Mg Tablet.dr, 40 MG PO DAILY HOME MED Potassium Chloride (Potassium Chloride) 20 Meq Tablet.er, 40 MEQ GT TID Rifampin (Rifampin) 300 Mg Capsule, 300 MG GT Q12H STARTED AT [facility] Risperidone (Risperidone) 0.5 Mg Tablet, 0.5 MG GT TID STARTED AT [facility] Torsemide (Torsemide) 20 Mg Tablet, 20 MG GT DAILY STARTED AT [facility] Scheduled PRN Acetaminophen (Children's Tylenol) 160 Mg/5 Ml Oral.susp, 640 MG GT Q4H PRN for PAIN / FEVER STARTED AT [facility] Bisacodyl (Bisacodyl) 10 Mg Supp.rect, 10 MG NC DAILY PRN for CONSTIPATION Carboxymethylcellulose Sodium (Refresh Tears) 15 Ml Drops, 1 DROP OU Q3HP PRN for DRY EYES Ipratropium/Albuterol Sulfate (Iprat-Albut 0.5-3(2.5) mg/3 ml) 3 Ml Ampul.neb, 1 SAL INH Q4H PRN for SHORTNESS OF BREATH Nitroglycerin (Nitrostat) 0.4 Mg Tab.subl, 0.4 MG SL NITRO PRN for CHEST PAIN Allergies Coded Allergies: Penicillins (Verified Allergy, Unknown, 06/17/19) bee venom protein (honey bee) (Verified Allergy, Unknown, 06/17/19) cephalexin (Verified Allergy, Unknown, 06/17/19) sulfamethoxazole (Verified Allergy, Unknown, 06/17/19) trimethoprim (Verified Allergy, Unknown, 06/17/19) A-FIB/CHADSVASC A-FIB History Current/History of A-Fib/PAF?: Yes Current PO Anticoag Therapy: Yes YESENIA FERNANDES MD Jun 26, 2019 13:35
[2019-06-26] MEDS ORDERED: POTASSIUM CHLORIDE 10% LIQ 20 MEQ/15 ML UDC GT ONE (13:45)
[2019-06-26] MEDS: TORSEMIDE 20 MG TAB GT SCH (14:53)
[2019-06-26] MEDS: APIXABAN 2.5 MG TAB (ELIQUIS) GT SCH ×2 (14:53→20:10)
[2019-06-26] MEDS ORDERED: risperiDONE 0.5 MG TAB GT SCH (16:00)
[2019-06-26] MEDS: NYSTATIN 100,000 UNITS/GM TOPICAL PWD 15 GM TOP SCH ×2 (16:52→20:11)
[2019-06-26] MEDS: CARVedilol 6.25 MG TAB GT SCH ×2 (16:52→20:10)
[2019-06-26] MEDS ORDERED: ONDANSETRON 4MG/2ML VIAL (J2405) IV PRN (17:00)
[2019-06-26] MEDS ORDERED: MAG SULF 1GM/100ML (MAG RUN) 1 GM in IV 1 EA IV ONE (17:00)
--- NOTE | 2019-06-26 19:00 | SMCUROLCON ---
Urology Consultation General Date of Consultation 06/26/19 Reason For Consultation This patient is seen for A-Fib With Rvr. History of Present Illness The patient is an 83-year-old female with a past medical history for cardiac issues. A catheter was attempted by the nursing staff, but was unable to be placed and a urology consult was therefore called to assist in Marinelli catheter placement. Past Medical History Medical History The patient has no prior history of bladder problems. She does admit, however, that she has had some difficulty in expelling the urine for the past 2 years. 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 Surgical Hstory Bilateral cataracts, tonsillectomy, CVA, 05/16/2019, CABG, stents, aortic valve replacement, A. fib with RVR, PEG tube placement, 06/03/2019 Family History Significant Family History: No pertinent family hx Family History No Urologic Issues Social History Alcohol: Denies Drugs: denies Medications Current Medications Current Medications Medications (Trade) Dose Ordered Sig/Shaji Route PRN Reason Start Time Stop Time Status Last Admin Dose Admin Albuterol/ Ipratropium (Duoneb (Ipr 0.5mg/Alb 2.5mg)) 1 ml Q4H PRN INH SHORTNESS OF BREATH 06/26/19 13:30 Apixaban (Eliquis) 2.5 mg BID GT 06/26/19 09:00 06/26/19 14:53 Atorvastatin Calcium (Lipitor) 80 mg QHS GT 06/26/19 21:00 Bisacodyl (Dulcolax Suppository) 10 mg DAILY PRN SC CONSTIPATION 06/26/19 13:30 Carvedilol (COReg) 6.25 mg TID GT 06/26/19 16:00 06/26/19 16:52 Clopidogrel Bisulfate (PLAVix) 75 mg DAILY GT 06/27/19 09:00 Digoxin (Lanoxin) 0.25 mg STAT STAT IV 06/26/19 12:32 06/26/19 13:13 DC Diltiazem HCl (Cardizem) 30 mg Q6H GT 06/26/19 18:00 Diltiazem HCl (Cardizem) 60 mg Q6H GT 06/26/19 12:00 06/26/19 15:29 DC 06/26/19 14:56 Famotidine (Pepcid) 20 mg QHS GT 06/26/19 21:00 Home Med (Med Rec Complete!) ASDIRECTED XX 06/26/19 13:30 06/26/19 13:24 DC Latanoprost (Xalatan 0.005% Op Soln) 1 drop QHS OU 06/26/19 21:00 Losartan Potassium (Cozaar) 50 mg DAILY PO 06/27/19 09:00 Nitroglycerin (Nitrostat (1/ 150)) 0.4 mg ASDIRECTED PRN SL CHEST PAIN 06/26/19 13:30 Nystatin (Mycostatin Powder, Nystop) 1 dose TID TOP 06/26/19 16:00 06/26/19 16:52 Ondansetron HCl (ZOFRAN INJection) 4 mg Q6HP PRN IV NAUSEA OR VOMITING 06/26/19 17:00 Pantoprazole Sodium (Protonix) 40 mg DAILY PO 06/27/19 09:00 Risperidone (RisperDAL) 0.5 mg TID GT 06/26/19 16:00 06/26/19 18:14 DC 06/26/19 16:51 Risperidone (RisperDAL) 0.5 mg TID PO 06/26/19 16:00 Torsemide (Demadex) 20 mg DAILY GT 06/26/19 09:00 06/26/19 14:53 Allergies Allergies: Coded Allergies: Penicillins (Verified Allergy, Unknown, 06/17/19) bee venom protein (honey bee) (Verified Allergy, Unknown, 06/17/19) cephalexin (Verified Allergy, Unknown, 06/17/19) sulfamethoxazole (Verified Allergy, Unknown, 06/17/19) trimethoprim (Verified Allergy, Unknown, 06/17/19) Review of Systems General: Denies: ROS Unobtainable, Chills, Night Sweats, Fatigue, Malaise, Normal Appetite, Other Symptoms Constitutional: Reports: Weakness; Denies: Fever, Chills, Sweats, Malaise, Other Eyes: Denies: Pain, Vision change, Conjunctivae inflammation, Eyelid inflam mation, Redness, Other ENT: Denies: Head Aches, Ear Pain, Dysphagia, Sinus Congestion, Post Nasal Drip, Sore Throat, Epistaxis, Other Symptoms Skin: Denies: Rash, Lesions, Jaundice, Bruising, Itching, Dry, Breakdown, Nail Changes, Other Pulmonary: Denies: Dyspnea, Cough, Pleuritic Chest Pain, Other Symptoms Cardiovascular: Reports Other Symptoms (palpitations) Gastrointestinal: Denies: Nausea, Vomiting, Abdominal Pain, Diarrhea, Constipation, Melena, Hematochezia, Other Symptoms Genitourinary: Denies: Dysuria, Frequency, Incontinence, Hematuria, Retention, Other Symptoms Hematologic: Denies: Bruising, Bleeding Excessively, Petecchia, Purpura, Enlarged Lymph Nodes, Other Hematologic Endocrine: Denies: Polydipsia, Polyphagia, Polyuria, Heat Intolerance, Cold Intolerance, Other Endocrine Sx Musculoskeletal: Reports: Other Symptoms (weakness) Neurological: Denies: Weakness, Numbness, Incoordination, Change in Speech, Confusion, Seizures, Other Symptoms Psych: Denies: Mood Normal, Anxiety, Depression, Memory Issues, Thoughts of Self Harm, Anger, Thoughts of harming Other, Other Psych Physical Examination General Exam: No: Alert, Cooperative, No Acute Distress, Mild Distress, Moderate Distress, Severe Distress, Other EYE EXAM: PERRLA ENT EXAM: Atraumatic, Mucous membr. moist/pink, Pharynx Normal Neck Exam: No: Supple, JVD, thyromegaly, +2 carotid pulse wo bruit, Lymphadenopathy, Other Chest Exam: No: Clear to auscultation, Normal air movement, Rales, Rhonchi, Wheezing, Diminished, Other Heart Exam: No: Rate Normal, Tachycardic, Bradycardic, Regular Rhythm, Irregular Rhythm, Normal S1, Normal S2, Gallops, Murmurs, Rubs, Other Female Exam: Nl Ext Genitalia, Normal Cervical Exam, Lesions, Discharge, Odor, Tenderness, Nl Rectal Sphincter Tone Female Exam The patient has a urethral prolapse and some vaginal atrophy with a narrow introitus. Extremity Exam: Other (limited range of motion) Skin Exam: No: Nl turgor and temperature, Rash, Breakdown, Lesion, Pruritus, Other skin issue Neuro Exam: No: Normal Gait, Normal Speech, Strength at 5/5 X4 ext, Normal Tone, Sensation Intact, Cranial Nerves 3-12 NL, Reflexes 2+, Other Psych Exam: No: Mental status NL, Mood NL, Anxiety, Memory Intact, Oriented x 3, Other Vital Signs/I&O Vital Signs Date Time Temp Pulse Resp B/P (MAP) Pulse Ox O2 Delivery O2 Flow Rate FiO2 06/26/19 14:56 87 129/60 06/26/19 13:30 96 Room Air 06/26/19 13:00 2.0 06/26/19 12:49 98.9 18 Laboratory Data 24H Labs Laboratory Tests 2 06/26/19 13:11: Magnesium Level 1.6L Assessment Urethral prolapse, making catheter insertion difficult Plan The patient was prepped and a #16 Khmer coud catheter was able to be inserted into the bladder and yellow urine was drained. Catheter was left in place. Since the patient does have a history of difficulty voiding. Her urethral prolapse to be addressed at a later date, but for now, the Marinelli catheter be left in place until she reaches the regular floor. She can then have a trial of voiding. If she continues to have voiding difficulty. Urology consult can be called again Time Spent on Consult: Time Spent / Consult (Minutes): 45 ARIADNA VALLEJO MD Jun 26, 2019 19:00
[2019-06-26] MEDS: risperiDONE 0.5 MG TAB PO SCH ×2 (19:20→20:10)
[2019-06-26 20:00] VITALS: BP 139/64
[2019-06-26] MEDS: LATANOPROST 0.005% OPHTH SOLN 2.5 ML OU SCH (20:09)
[2019-06-26] MEDS: ATORVASTATIN 20 MG TAB GT SCH (20:09)
[2019-06-26] MEDS: FAMOTIDINE 20 MG TAB GT SCH (20:09)
--- NOTE | 2019-06-26 20:33 | CR ---
DATE OF CONSULTATION: 06/26/2019 REFERRING PHYSICIAN: Praneeth Pan MD INDICATION: Atrial fibrillation with rapid ventricular response. Endocarditis. HISTORY OF PRESENT ILLNESS: Ms. Conley is previously unknown to me. She is a pleasant, been a very complex patient, who was transferred from [place] to our facility on June 17 for rehabilitation after she suffered a stroke. I interviewed the patient and her and reviewed the records that we were able to receive from [facility] in [place]. It appears that she presented there on May 16 with altered mental status and fever. 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 She was treated medically and her medical condition improved, but there were numerous complications. First of all she had episodes of atrial fibrillation with RVR and also looks like she had at least transient episode of 2:1 conduction. She also had multiple strokes on neuroimaging and the dominant being the right occipital infarct, but she had also multiple areas of right frontal and parietal lesions that looks suspicious for embolization. At least on one area, there was suspicion that it could be forming a brain abscess. Nevertheless, I presume mostly due to her advanced age and overall frail status, she was treated purely medically. It looks like that she improved, the fever gradually subsided and blood cultures became negative and she was transferred to our facility for rehabilitation. According to her , she has not really made much progress; if anything, her condition has deteriorated since she has been here. There have been problems with mobility, problems with oral intake. She has had frequent episodes of nausea. Eventually, it was noted today that she developed atrial fibrillation with RVR and Dr. Pan was called. He transferred the patient to ICU and called me for a consultation. She received a single dose of digoxin that led to religion of sinus mechanism. She has known underlying left bundle branch block. At bedside, the patient looks chronically ill, but not acutely ill and actually is quite pleasant and unfortunately is unable to provide much of the history. She denies any chest pain and she denies much shortness of breath. She did not have any sensation of palpitations. She does admit that she still gets confused at times and then there is ongoing muscle weakness. PAST MEDICAL HISTORY: 1. Coronary artery disease. She has a three-vessel coronary intervention in 2017. Unfortunately, I do not have any details available. She then had non-ST elevation myocardial infarction (GA) in March 2018 and received drug-eluting stent to left main and ostial left circumflex artery. 2. History of TAVR in 2017 for severe aortic stenosis. 3. History of paroxysmal atrial fibrillation. 4. Recent hospitalization as per history of present illness and include stroke, fevers, sepsis and placement of PEG tube due to difficulty swallowing. During her hospitalization, it sounded like she had two echocardiograms, one was on May 18 and revealed ejection fraction (EF) 55% to 60%. Normal function of aortic bioprosthesis, moderate mitral insufficiency and pulmonary artery pressure about 55. The second one was on June 13 and again revealed preserved left ventricular systolic function with degenerative abnormalities of mitral valve, moderate mitral insufficiency and this time there were clearly visible large vegetations on mitral valve. She also had a transesophageal echocardiogram, but unfortunately we do not have any records from the procedure. SURGICAL HISTORY: Positive for coronary interventions and TAVR. She also had a PEG tube placed. SOCIAL HISTORY: The patient is , lives with her . There is no smoking and no alcohol. FAMILY HISTORY: Apparently, both her parents had cardiac problems, but lived into very advanced age. REVIEW OF SYSTEMS: As per history of present illness. She does not recall any history of bleeding problems. ALLERGIES: PENICILLIN, HONEY BEES, CEPHALEXIN, SULFAMETHOXAZOLE-TRIMETHOPRIM. CURRENT MEDICATIONS: She takes Plavix 75 mg a day, losartan 50 a day, pantoprazole 40 mg a day, Lipitor 80 mg a day, diltiazem 60 mg every 6 hours, Coreg 6.25 mg three times a day, Risperdal, dulcolax, nitroglycerin, apixaban 2.5 twice a day and torsemide 20 mg daily PHYSICAL EXAMINATION: Vital signs: Blood pressure 129/60, heart rate 90. She is currently afebrile. Saturation 96% on room air and weight documented as 69.5 kg. Ms. Conley is an elderly woman who appears chronically ill. She is alert and oriented x3. Her JVP is not high. Lungs are reasonably clear. There are somewhat diminished breath sounds over both bases, but I do not appreciate any crackles or wheezing. Heart exam reveals regular rhythm. There is a paradoxically split in second heart sound and there is a murmur best heard at the apex not overly loud maybe 2 or 3/6 intensity that is blowing in character and radiating towards her axilla. Abdomen is soft. There is a PEG tube in left upper quadrant. I do not appreciate any guarding. Bowel sounds are present. Extremities are free of edema. Peripheral pulses are detectable ECG from today reveals most likely atrial flutter with 2:1 conduction and ventricular rate 156 beats per minute. She had an MRI performed, but the result is still pending. It looks like the study was not completed due to poor cooperation. LABORATORY DATA: As of today, hemoglobin 9.4, hematocrit 30.2, platelet count 468,000, WBC count 13.1. Basic metabolic panel: Sodium 136, potassium 2.8, BUN 13, creatinine 0.8, glucose 116, magnesium 1.6, AST is 31, ALT 8, alkaline phosphatase 153, CK, CK-MB, troponin are normal. CRP 11.5 and is going up and albumin is 2.5. TSH is 2.1 ASSESSMENT/PLAN: Ms. Conley is an elderly female who has severe coronary artery disease with history of three-vessel coronary interventions, including left main stenting. 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 The diagnosis was made on May 16, 2019. With antibiotic treatment, it looks like her initial sepsis has defervesced and she actually became a febrile; but now I am concerned that with raising C-reactive protein (CRP) and white blood cell (WBC) count. There is definite concern that the infection is not controlled. I am also somewhat troubled by the fact that when she presented with stroke with multiple cerebral lesions it is almost certain that this represented embolic phenomenon to her brain, they also report that she had episodes of transient AV block and large vegetations on mitral valve, all which constitute indication for surgical intervention. Even though I did not find any discussion on this topic, I believe that the patient was not found to be a candidate for surgery. I had a long and difficult discussion with the patient and her . I explained that at this point there is my concern that the infection has not been completely contained. Will obtain an echocardiogram tomorrow to get an idea how the mitral valve is looking. Provided we should see worsening mitral insufficiency, then the difficult decision will have to be made as to whether to operate or not to operate. Unfortunately, I believe that the patient is not a good surgical candidate and will have a very high surgical risk. I expressed this pessimism to her . In the interim, I would continue current management, even though the anticoagulation in the setting of endocarditis is problematic. The patient definitely has episodes of atrial arrhythmias and has very high embolic risk as well. Hopefully, the MRI will give us some insight as to what her brain lesions are looking light. If needs to be, I would discontinue Eliquis and leave her on Plavix only. I would continue current management of atrial fibrillation with combination of Cardizem and carvedilol, but I am going to decrease the dose of Cardizem slightly. It does not seem to be effective in controlling her heart rate and unfortunately imposes higher risk of AV block. She already has underlying left bundle branch block. Finally, as far as the electrolyte abnormalities are concerned, I will leave the replacement to the primary team. I am afraid that the patient's condition is guarded at best; especially if there should be evidence for ongoing infection.
[2019-06-26 21:20] LABS: CK-MB VALUE MASS 2.1 NG/ML (<3.6); MB/CK RELATIVE INDEX 4.67 (< OR =4); TROPONIN I 0.22 NG/ML (< 0.10)
[2019-06-26] MEDS ORDERED: POTASSIUM CHLORIDE 10 MEQ SR TABLET PO SCH (22:30)
[2019-06-27] VITALS (8 sets, daily range): BP systolic 93–127; BP diastolic 49–59
[2019-06-27] MEDS: POTASSIUM CHLORIDE 10% LIQ 20 MEQ/15 ML UDC GT SCH ×2 (00:54→04:57)
[2019-06-27] MEDS ORDERED: diphenhydrAMINE CREAM 30GM TOP PRN (01:45)
[2019-06-27] MEDS ORDERED: FLUBLOK(EGG FREE)(QUAD)INFLUENZA VACC 0.5ML SYRINGE (90682)18YRS&OLDER IM SCH (04:45)
[2019-06-27 06:36] LABS: BASO % 0.4 % (0.0-1.0); EOS # 0.8 10^3/uL (0.0-0.5); EOS % 7.3 % (0.0-3.0); HEMATOCRIT 27.5 % (36.0-47.0); HEMOGLOBIN 8.6 g/dl (12.0-15.5); LYMPH # 1.2 10^3/uL (1.5-5.0); LYMPH % 11.3 % (24.0-44.0); MEAN CORPUSCULAR HEMOGLOBIN 29.1 pg (27.0-33.0); MEAN CORPUSCULAR HGB CONC 31.3 g/dl (32.0-36.5); MEAN CORPUSCULAR VOLUME 92.9 fl (80.0-96.0); MONO # 0.9 10^3/uL (0.0-0.8); MONO % 8.7 % (0.0-5.0); NEUTROPHILS # 7.7 10^3/uL (1.5-8.5); NEUTROPHILS % 71.9 % (36.0-66.0); PLATELET COUNT, AUTOMATED 419 10^3/uL (150-450); RED BLOOD COUNT 2.96 10^6/uL (4.00-5.40); WHITE BLOOD COUNT 10.7 10^3/uL (4.0-10.0)
[2019-06-27 07:02] LABS: ALBUMIN 2.2 GM/DL (3.2-5.2); ALT/SGPT 7 U/L (12-78); BILIRUBIN,TOTAL 0.3 MG/DL (0.2-1.0); BLOOD UREA NITROGEN 10 MG/DL (7-18); CALCIUM LEVEL 8.1 MG/DL (8.8-10.2); CARBON DIOXIDE LEVEL 29 MEQ/L (21-32); CHLORIDE LEVEL 100 MEQ/L (98-107); CREATININE FOR GFR 0.73 MG/DL (0.55-1.30); GLOMERULAR FILTRATION RATE > 60.0 (>32); GLUCOSE, FASTING 109 MG/DL (70-100); MAGNESIUM LEVEL 1.7 MG/DL (1.8-2.4); NT-PRO BNP 3849 PG/ML (<450); POTASSIUM SERUM 4.5 MEQ/L (3.5-5.1); SODIUM LEVEL 137 MEQ/L (136-145); TOTAL PROTEIN 6.3 GM/DL (6.4-8.2)
--- NOTE | 2019-06-27 07:53 | IPN ---
DATE: 06/27/2019 Mrs. Conley did not have any significant events overnight. She remains in sinus rhythm with left bundle branch block. She still complains about feeling tired but has no other concerns or complaints. Vital signs this morning blood pressure 122/60, heart rate has been 80s. She is afebrile. Saturation 92% on room air. Weight has not been recorded this morning as yet. She is alert and oriented and appropriate. Lungs are clear on the right but she has a lot of crackles on the left lower approximately one-half. Heart exam reveals regular rhythm. I do not appreciate any gallop, but there is murmur at the apex about 2 or 3 out of 6 in intensity radiating to her axilla and holosystolic in nature. Abdomen is soft. The G-tube is in place. Extremities are free of edema. Neurologically, besides generalized weakness. She is intact. LABORATORY: This morning CBC reveals hemoglobin 8.6, hematocrit 28.5, platelet count 418, WBC count 10.7. Basic metabolic panel is normal and N terminal proBNP 3800. A bedside echocardiogram was being performed as I examined the patient. I was not able to review all the images, but based on limited review of can conclude that there is ongoing vegetation on the mitral valve that is easily seen even on transthoracic study with at least moderate if not more severe mitral insufficiency. ASSESSMENT AND PLAN: Mrs. Conley is an 83-year-old female who has a history of multivessel stenting including left main coronary artery and TAVR. She presented with bacterial endocarditis with methicillin-sensitive Staphylococcus aureus (MSSA) involving mitral valve to outside hospital. She was treated medically, stabilized and transferred to our facility for rehabilitation because one of the complicating event was development of stroke. I am concerned that she has ongoing infection of the valve as is evidenced by elevated ESR and CRP. Also there is still large visualized vegetation even on transthoracic study. We will have to discuss the case with infectious disease but my inclination would be to consult cardiac surgery for possibility of surgical intervention. She has several indications that include large vegetation and history of embolization. I opened this question with the patient and her yesterday and expressed also some hesitation with the surgery which certainly would be very high risk intervention, I did not do any clear-cut answer, but I will approach them again tomorrow. In the interim, I recommend to obtain a chest x-ray, I am suspicious that the patient aspirated. The case was discussed with Dr. Pan.
[2019-06-27] MEDS ORDERED: MAG SULF 1GM/100ML (MAG RUN) 1 GM in IV 1 EA IV ONE (09:00)
[2019-06-27] MEDS: TORSEMIDE 20 MG TAB GT SCH (10:12)
[2019-06-27] MEDS: PANTOPRAZOLE 40MG TAB (PROTONIX) PO SCH (10:12)
[2019-06-27] MEDS: CLOPIDOGREL 75 MG TAB GT SCH (10:12)
[2019-06-27] MEDS: LOSARTAN 50 MG TAB PO SCH (10:13)
[2019-06-27] MEDS: CARVedilol 6.25 MG TAB GT SCH ×3 (10:14→20:06)
[2019-06-27] MEDS: risperiDONE 0.5 MG TAB PO SCH ×3 (10:14→20:06)
[2019-06-27] MEDS: APIXABAN 2.5 MG TAB (ELIQUIS) GT SCH ×2 (10:14→20:06)
[2019-06-27] MEDS: NYSTATIN 100,000 UNITS/GM TOPICAL PWD 15 GM TOP SCH ×3 (10:15→20:07)
--- NOTE | 2019-06-27 12:11 | IPNPDOC ---
Text Note Date of Service The patient was seen on 06/27/19. NOTE Subjective: Patient seen and examined at bedside. No acute overnight events. No new medical complaints this morning. Discussed with at length at bedside regarding current medical issues and plan of care. Also discussed possible need for surgery, and risks involved. Denies chest pain, shortness of breath, abdominal pain, N/V/D. Objective: VITAL SIGNS: See below GENERAL APPEARANCE: NAD, lying comfortably in bed eating breakfast HEENT: NC/AT CARDIOVASCULAR: +S1S2, RRR, systolic murmur LUNGS: CTA B/L ABDOMEN: soft, NT, +BS, PEG tube in place. PSYCHIATRIC: AAOx3 HISTORY OF PRESENT ILLNESS: 83 yo female with PMHx TAVR 2016, CAD/stents 2017, NSTEMI, HTN, originally presented to [facility] 05/16/19 for lethargy/AMS/fever/new afib and admitted for sepsis. Found to have elevated BNP and troponinemia without ST elevations,and bacteremia. Started on Ro cephin/genta/vanc, concerned for endocarditis. TTE 05/18/19 showed no vegetations, cultures showed MSSA, antibiotics switched to Ancef and Rifampin. Found to have worsening mentation, and found to have right occipital lobe infarct, right cerebellar hemisphere/frontoparietal signal abnormalities with ring enhancing lesion suspicious for neoplasm versus infectious emboli. Subsequent TTI 06/13/19 after developing bradycardia and Wenckebach showed "large vegetation seen prolapsing into the right atrium" "well seated stent mounted bioprosthetic valve". Report taken from previous dictation, and is not clear, but evidently definitely showed a vegetation. She continued to have poor PO intake with dysphagia and PEG was placed on 06/03/19, but PO upgraded to "level two?" and thins prior to discharge. She did have an episode of decompensated CHF prior to discharge, treated with diuretic. She had impairments in mobility and ADL, and deemed medically appropriate to discharge to ARU on 06/17/19. Today, called by nursing to inform of tachycardia. Patient also has been complaining of nausea from yesterday. ECG obtained showing rapid-afib. Patient complained of left sided chest pain. Patient transferred to ICU. On arrival she is normocardic with normal blood pressures. Chest pain resolved. Extensive discussion with regarding events, as well as code status. He is adamant regarding full code. ASSESSMENT: 83 yo female with extensive cardiac history - CAD/stents/NSTEMI/TAVR, HTN, CVA/embolization suspected from mitral vegetation, ring enhancing lesion on CT brain suspicious for malignancy, bacteremia/endocarditis, transferred from to ARU from [place] for rehab. Yesterday transferred to PCU for afib RVR. PLAN: #bacteremia/endocarditis - continue Abx - f/u ID - repeat TTE continues to show very large vegetation on mitral valve - discussed with family at length regarding surgical option and very high risk - to discuss further with family - daughter is in [place] - cell phone number provided to call for further discussion #afib with RVR - resolved - continue telemetry monitoring - cardize - cardiology c/s appreciated #electrolyte derangement - replete and follow #CVA - continue PT/OT #dysphagia - resume previous diet, use PEG as needed #CAD/NSTEMI - continue medical therapy #HTN - continue medical therapy #DVT prophylaxis Dispo: pending ID f/u, family to decide if surgery is an option if needed VS,Fishbone, I+O VS, Fishbone, I+O Laboratory Tests 06/26/19 20:24 06/27/19 06:14 Vital Signs Date Time Temp Pulse Resp B/P (MAP) Pulse Ox O2 Delivery O2 Flow Rate FiO2 06/27/19 10:14 82 06/27/19 10:13 120/76 06/27/19 10:00 20 98 Room Air 06/27/19 08:00 97.6 06/26/19 13:00 2.0 I&O- Last 24 Hours up to 6 AM 06/27/19 06:00 Intake Total 760 ml Output Total 1505 ml Balance -745 ml YESENIA FERNANDES MD Jun 27, 2019 12:11
--- NOTE | 2019-06-27 15:39 | REP ---
Portable chest x-ray: Single view. History: Short of breath. No comparison study. Findings: A right-sided PICC line is seen in place with its tip at the junction of the SVC and subclavian vein. An aortic valve replacement is noted. Coronary artery stent material is visible. The heart is not felt to be enlarged. Pleural angles are sharp. Pulmonary vasculature is not increased. No infiltrate is seen. Impression: Status post coronary artery stenting and aortic valve replacement. PICC line. No infiltrates seen. Electronically Signed by Fermín Hung MD 06/27/2019 08:42 A
[2019-06-27] MEDS: ceFAZolin SOD 2 GM in IV 1 EA IV SCH (19:28)
[2019-06-27] MEDS: ATORVASTATIN 20 MG TAB GT SCH (20:06)
[2019-06-27] MEDS: LATANOPROST 0.005% OPHTH SOLN 2.5 ML OU SCH (20:06)
[2019-06-27] MEDS: FAMOTIDINE 20 MG TAB GT SCH (20:06)
[2019-06-27] MEDS: ANALGESIC BALM CRM 120 GM TOP SCH (23:15)
[2019-06-28] VITALS (12 sets, daily range): BP systolic 95–132; BP diastolic 51–62
[2019-06-28] MEDS: ceFAZolin SOD 2 GM in IV 1 EA IV SCH (04:00)
[2019-06-28 05:47] LABS: BASO % 0.3 % (0.0-1.0); EOS # 0.8 10^3/uL (0.0-0.5); EOS % 6.7 % (0.0-3.0); HEMOGLOBIN 8.2 g/dl (12.0-15.5); LYMPH % 8.3 % (24.0-44.0); MEAN CORPUSCULAR HEMOGLOBIN 28.9 pg (27.0-33.0); MEAN CORPUSCULAR HGB CONC 31.5 g/dl (32.0-36.5); MEAN CORPUSCULAR VOLUME 91.5 fl (80.0-96.0); MONO # 0.9 10^3/uL (0.0-0.8); NEUTROPHILS # 9.6 10^3/uL (1.5-8.5); NEUTROPHILS % 77.1 % (36.0-66.0); PLATELET COUNT, AUTOMATED 385 10^3/uL (150-450); RED BLOOD COUNT 2.84 10^6/uL (4.00-5.40); WHITE BLOOD COUNT 12.4 10^3/uL (4.0-10.0)
[2019-06-28 06:17] LABS: BLOOD UREA NITROGEN 12 MG/DL (7-18); CALCIUM LEVEL 8.1 MG/DL (8.8-10.2); CARBON DIOXIDE LEVEL 28 MEQ/L (21-32); CHLORIDE LEVEL 98 MEQ/L (98-107); CREATININE FOR GFR 0.61 MG/DL (0.55-1.30); GLOMERULAR FILTRATION RATE > 60.0 (>32); GLUCOSE, FASTING 83 MG/DL (70-100); POTASSIUM SERUM 3.7 MEQ/L (3.5-5.1); SODIUM LEVEL 133 MEQ/L (136-145)
[2019-06-28 06:24] LABS: ERYTHROCYTE SEDIMENTATION RATE 87 mm/hr (0-30)
[2019-06-28] MEDS ORDERED: METOPROLOL 5 MG/5 ML VIAL IV STA (07:02)
--- NOTE | 2019-06-28 07:59 | IPN ---
DATE: 06/27/2019 Mrs. Conley was seen during rehabilitation stay to follow up on endocarditis. Yesterday the patient developed atrial fibrillation with rapid ventricular response. She was noted to be tachycardiac by the nurse and was having some nausea. She did complain of some left-sided chest pain and the patient was transferred to the ICU. The patient is a full code. She was seen in consultation by Dr. Schroeder who has scheduled an echocardiogram the results of which are not available yet. She has not had any fever or chills. No vomiting but was nauseous. The patient now feels better. I am not sure the reasoning but her antibiotics were discontinued yesterday her last dose of cefazolin and rifampin were yesterday morning. LABORATORY DATA: White count of 10.7, hemoglobin 8.6, hematocrit 27.5, platelets 419, 72% neutrophils, 11% lymphocytes, 8% monocytes, eosinophils 7.3%. Sodium 137, potassium 4.5, chloride 100, bicarb 29, BUN 10, creatinine 0.73, glucose 109, calcium 8.9, magnesium 1.7, AST 30, ALT 37, BNP 3849, total protein 6.3, albumin 2.2, CRP 11.5 which has increased from 7.7 6 days ago. ESR 96 which has improved with increased from 70. IMAGING STUDIES: Chest x-ray Done on 06/27/2019 shows coronary artery stenting and aortic valve replacement PICC line with no infiltrates. Brain MRI done on 06/25/2019 shows multiple chronic infarctions. Some subacute callosal an right frontoparietal infarct as well without mass effect and age-related changes mastoid effusions. Abdominal x-ray done shows a G-tube in place and few mildly dilated air fluid levels. PHYSICAL EXAMINATION: She is pleasant looking in no acute distress. She is discussing with me how to bake my salmon in a crockpot. Temperature is 96.8, pulse 95, respirations 22, blood pressure 93/52, O2 sat 98% on room air. Heart: Normal S1-S2 with a systolic ejection murmur 2-3/6 best heard at the apex. Lungs: Clear. No wheezes or rhonchi. Abdomen: G tube in place, nontender. No visceromegaly. Extremities: No clubbing, cyanosis or edema. Neurologic: Exam moves all extremities for the most part she is alert, she is alert and oriented times 3, sometimes is forgetful. IMPRESSION: 1. Mitral valve endocarditis with a large vegetation and multiple embolic phenomena on IV cefazolin and rifampin which was discontinued yesterday. The patient has been without antibiotics for 24 hours. The patient has increasing sed rate and CRP and has developed atrial fibrillation with RVR. She had a followup echocardiogram today the results are still pending the concern is whether the patient has failed endocarditis treatment with increasing inflammation markers and possibly continued infarction. 2. Status post TAVR for severe aortic sclerosis, stable. 3. Coronary artery disease, atrial fibrillation with rapid ventricular response. The patient responded to Cardizem. 4. Dysphagia. The patient has been on a peg tube feeding. PLAN: Restart IV cefazolin 2 grams every 8 hours, rifampin 300 mg by mouth twice a day. We will review echo finding and discuss the case with Dr. Schroeder. The patient may not be a surgical candidate for valve replacement of the mitral valve but Dr. Schroeder will be calling her cardiothoracic surgeon in [place] and I will discuss the case with infectious disease at [facility]. Dr. Shakira Jones who initially took care of the patient until she was transferred to our care from 05/16 until 06/21. Her end of treatment date was scheduled to be on 06/30 which would be a total of 6 weeks from negative culture. Will decide on length of antibiotic therapy, maybe 8 weeks followed by chronic suppressive therapy if she is not a surgical candidate. Infectious disease at [place] Dr. Jones [phone]. [facility]
--- NOTE | 2019-06-28 08:02 | ECHO ---
DATE OF STUDY: 06/27/2019 REFERRING PHYSICIAN: Dr. Schroeder INDICATION: Mitral valve endocarditis. HEIGHT: 170 cm WEIGHT: 70 kg DIMENSIONS: IVS 1.1 LV 4.6 LVPW 1.1 LA 4.3 Aorta 2.1 Left atrial volume index 56 IVC 2.0 Mitral E wave velocity 182, A-wave 137 E prime septal 4.7 E prime lateral 4.8 FINDINGS: The study is of acceptable technical quality. The patient is in sinus rhythm with underlying left bundle branch block. Left ventricle is normal size and overall normal systolic function, I estimate ejection fraction (EF) 55-60%. Right ventricle appears dilated but normally contractile. There is severe biatrial enlargement, left atrium is much larger than right. Aortic valve is bioprosthetic valve. That was poorly visualized and I cannot comment much on its structure. There are very prominent degenerative abnormalities of mitral valve with calcifications at the base of both mitral leaflets. There are three echodensities attached to both mitral leaflets that are protruding into atrium and ventricle with cardiac cycle consistent with vegetations. The larger vegetation on the posterior mitral leaflet measures 2.1 x 0.8 cm. Tricuspid valve appears normal. Pulmonic valve also appear normal. No pericardial effusion is noted. Inferior vena cava is dilated but collapses with respiration indicative of likely mildly elevated central venous pressure. Aortic root is normal. Aortic arch and abdominal aorta is normal as well. Doppler interrogation of aortic bioprosthesis reveals no stenosis or insufficiency. There is severe mitral insufficiency and trivial mitral stenosis with mean gradient only 3 mmHg. There is trace tricuspid insufficiency and no significant pulmonic insufficiency. Mitral inflow pattern and tissue Doppler imaging of mitral annulus reveals pseudonormal left ventricular filling pressure indicative of grade 2 diastolic dysfunction. CONCLUSIONS: 1. Study is of acceptable technical quality. 2. Normal LV size with grossly preserved LV systolic function and grade 2 diastolic dysfunction. 3. Normally functioning bioprosthesis in aortic position. 4. Heavily degenerative mitral valve with visible vegetations, trivial stenosis and severe insufficiency. 5. Mildly elevated central venous pressure. 6. Unable to determine pulmonary artery pressure. COMMENTS: The study confirms presence of bacterial endocarditis of the mitral valve. It appears that the severity of mitral insufficiency is worsening even though we do not have the images from prior studies for direct comparison.
[2019-06-28] MEDS: LOSARTAN 50 MG TAB PO SCH (09:00)
[2019-06-28] MEDS: APIXABAN 2.5 MG TAB (ELIQUIS) GT SCH (09:00)
--- NOTE | 2019-06-28 09:06 | IPN ---
DATE: 06/28/2019 Mrs. Conley is feeling about the same as she did yesterday. She is feeling a little tired, but if anything, actually slightly more energetic. denies any dyspnea. Denies any sensation of palpitations or chest pain. Last night, she developed atrial fibrillation with rapid ventricular response and after she received single dose of IV metoprolol she converted back to sinus rhythm with a 4 second post conversion pause. Currently, during my exam, she is in atrial fibrillation with heart rate around 110-130. She is afebrile. Saturation is 97% on room air. Blood pressure 127/62. Her fluid balance yesterday was recorded about positive only 550 mL. She made about a liter of urine. Weight has not been recorded this morning yet. She is alert and oriented and appropriate. We had a completely sensible discussion this morning. Her jugular venous pulse (JVP) is not high at least by bedside assessment. Lungs are relatively clear with the exception of somewhat diminished breath sounds over left base. Heart exam reveals irregular rhythm with a murmur at the apex that is unchanged since yesterday. Abdomen is soft, nontender. Extremities are free of edema. Neurologically, she is grossly intact even though she does have some difficulty swallowing that is improving. I do not appreciate any distinct weakness of her extremities. LABORATORY: WBC count is 12.4, hemoglobin 8.2, hematocrit 26 and platelet count 385,000, and basic metabolic panel reveals sodium 133, potassium 3.7, BUN 12, creatinine 0.6 and glucose 83. CRP was 9, which is actually somewhat down compared to last week. An echocardiogram was performed yesterday and revealed ejection fraction (EF) around 60%. There were heavy degenerative abnormalities of mitral valve with visible large vegetations on both mitral leaflets and severe mitral insufficiency. Aortic bioprosthesis was intact. ASSESSMENT AND PLAN: Mrs. 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 Unfortunately, she continues to have large vegetations, she has very high erythrocyte sedimentation rate (ESR) and C-reactive protein (CRP) is going up and even though she has been afebrile I have to believe that she has ongoing active infection. I am afraid that without surgical intervention she is not going to survive her condition. I talked to her and the patient on Thursday that this would be a distinct possibility and after the echocardiogram I am afraid that we have to address this issue again. I believe that she is best served by being transferred to a tertiary facility with availability of open heart surgery. The patient wants to contemplate the surgical intervention even though she certainly would be very high risk and the outcome is uncertain, but I am afraid that without this the likelihood of survival is rather small. I will contact her primary care physician and discuss the situation with him at her request. After her arrives to the hospital we will have to make a final decision. She is a FULL CODE and wants everything done, and consequently, I think that will give her the only chance.
[2019-06-28] MEDS: PANTOPRAZOLE 40MG TAB (PROTONIX) PO SCH (09:27)
[2019-06-28] MEDS: risperiDONE 0.5 MG TAB PO SCH (09:27)
[2019-06-28] MEDS: TORSEMIDE 20 MG TAB GT SCH (09:27)
[2019-06-28] MEDS: CARVedilol 6.25 MG TAB GT SCH (09:28)
[2019-06-28] MEDS: CLOPIDOGREL 75 MG TAB GT SCH (09:28)
[2019-06-28] MEDS: ANALGESIC BALM CRM 120 GM TOP SCH (09:29)
[2019-06-28] MEDS: NYSTATIN 100,000 UNITS/GM TOPICAL PWD 15 GM TOP SCH (09:30)
--- NOTE | 2019-06-28 18:13 | DS.PDOC ---
Discharge Summary General Date of Admission Jun 26, 2019 at 12:23 Date of Discharge 06/28/2019 Attending Physician: CHRISTIANO DALE MD Discharge Summary PROCEDURES PERFORMED DURING STAY: None. ADMITTING DIAGNOSES: 1. A. fib with RVR, endocarditis. DISCHARGE DIAGNOSES: 1. A. fib with RVR, endocarditis. COMPLICATIONS/CHIEF COMPLAINT: A-Fib With Rvr. HISTORY OF PRESENT ILLNESS: 83-year-old female with past medical history of A. fib, coronary artery disease status post stent, and STEMI, endocarditis, hypertension, CHF, CVA, presents from acute rehabilitation unit for A. fib with RVR. Patient with recent diagnosis of endocarditis with subsequent CVA, likely due to embolic phenomena. Repeat echo with persistent mitral valve vegetations, evaluated by cardiology, recommended evaluation for surgical intervention given the size and embolic phenomena. Dr. Schroeder arranged for transfer to [facility], patient will be transferred there today. Patient without any compl aints overnight, required 1 dose of IV metoprolol in the morning for rate control, currently in A. fib with RVR, without any complaints at this time. HOSPITAL COURSE: As above. DISCHARGE MEDICATIONS: Please see below. ALLERGIES: Please see below. PHYSICAL EXAMINATION: VITAL SIGNS: Please see below. GENERAL: No distress, frail HEENT: Normocephalic, atraumatic, moist mucous membranes NECK: Supple CARDIOVASCULAR EXAMINATION: Irregularly irregular, tachycardic RESPIRATORY EXAMINATION: Diminished, poor air movement, no wheezing ABDOMINAL EXAMINATION: Soft, nontender, nondistended, positive bowel sounds EXTREMITIES: Range of motion intact SKIN: No rash NEUROLOGICAL EXAMINATION: Alert and oriented 3, no focal deficits PSYCHIATRIC EXAMINATION: Calm and cooperative LABORATORY DATA: Please see below. IMAGING: TTE with mitral vegetation PROGNOSIS: Guarded ACTIVITY: As tolerated. DIET: Cardiac DISCHARGE PLAN: Patient will be transferred to [facility] DISPOSITION: 02 Xfer To Acute Hosp. DISCHARGE INSTRUCTIONS: 1. As above. DISCHARGE CONDITION: Stable. TIME SPENT ON DISCHARGE: Greater than 35 minutes. Vital Signs/I&Os Vital Signs Date Time Temp Pulse Resp B/P (MAP) Pulse Ox O2 Delivery O2 Flow Rate FiO2 06/28/19 11:00 144 22 103/59 (74) 98 Room Air 06/28/19 07:43 97.5 06/26/19 13:00 2.0 l I&O- Last 24 Hours up to 6 AM 06/28/19 06:00 Intake Total 800 ml Output Total 910 ml Balance -110 ml Laboratory Data Labs 24H Laboratory Tests 2 06/28/19 05:27: Immature Granulocyte % (Auto) 0.6, Neutrophils (%) (Auto) 77.1H, Lymphocytes (%) (Auto) 8.3L, Monocytes (%) (Auto) 7.0H, Eosinophils (%) (Auto) 6.7H, Basophils (%) (Auto) 0.3, Neutrophils # (Auto) 9.6H, Lymphocytes # (Auto) 1.0L, Monocytes # (Auto) 0.9H, Eosinophils # (Auto) 0.8H, Basophils # (Auto) 0.0, Nucleated Red Blood Cells % (auto) 0.0, Erythrocyte Sedimentation Rate 87H, Anion Gap 7L, Glomerular Filtration Rate > 60.0, Calcium Level 8.1L, C-Reactive Protein, Quantitative 9.00H CBC/BMP Laboratory Tests 06/28/19 05:27 Microbiology Microbiology 06/28/19 Blood Culture, Received Pending 06/27/19 Blood Culture - Preliminary, Resulted No growth after 24 hours . All specim... Discharge Medications Scheduled Apixaban (Eliquis) 2.5 Mg Tablet, 2.5 MG GT BID, (Reported) STARTED AT [facility] Atorvastatin Calcium (Atorvastatin Calcium) 80 Mg Tablet, 80 MG GT QHS, (Reported) HOME MED Carvedilol (Carvedilol) 6.25 Mg Tablet, 6.25 MG GT TID, (Reported) HOME MED Cefazolin Sodium/Dextrose,Iso (Cefazolin 2 G/100 ml-Dextrose) 2 Gm/100 Ml Froz.piggy, 2 GM IV TID, (Reported) STARTED AT [facility] Clopidogrel Bisulfate (Plavix) 75 Mg Tablet, 75 MG GT DAILY, (Reported) Diltiazem HCl (Diltiazem HCl) 60 Mg Tablet, 60 MG GT Q6H, (Reported) STARTED AT [facility] Famotidine (Famotidine) 20 Mg Tablet, 20 MG GT QHS, (Reported) Latanoprost (Xalatan) 0.005% 2.5ML Drops, 1 DROP OU QHS, (Reported) Losartan Potassium (Losartan Potassium) 50 Mg Tablet, 50 MG PO DAILY, (Reported) HOME MED Nystatin (Nystatin Oral Susp) 100,000 Unit/1 Ml Oral.susp, 5 ML SS QID, (Reported) STARTED AT [facility] Nystatin (Nystatin Powder) 15 Gm Powder, 1 DOSE TOP TID, (Reported) APPLY TO GROIN AREA - STARTED AT [facility] Pantoprazole Sodium (Pantoprazole Sodium) 40 Mg Tablet.dr, 40 MG PO DAILY, (Reported) HOME MED Potassium Chloride (Potassium Chloride) 20 Meq Tablet.er, 40 MEQ GT TID, (Reported) Rifampin (Rifampin) 300 Mg Capsule, 300 MG GT Q12H, (Reported) STARTED AT [facility] Risperidone (Risperidone) 0.5 Mg Tablet, 0.5 MG GT TID, (Reported) STARTED AT [facility] Torsemide (Torsemide) 20 Mg Tablet, 20 MG GT DAILY, (Reported) STARTED AT [facility] Scheduled PRN Acetaminophen (Children's Tylenol) 160 Mg/5 Ml Oral.susp, 640 MG GT Q4H PRN for PAIN / FEVER, (Reported) STARTED AT [facility] Bisacodyl (Bisacodyl) 10 Mg Supp.rect, 10 MG OR DAILY PRN for CONSTIPATION, (Reported) Carboxymethylcellulose Sodium (Refresh Tears) 15 Ml Drops, 1 DROP OU Q3HP PRN f or DRY EYES, (Reported) Ipratropium/Albuterol Sulfate (Iprat-Albut 0.5-3(2.5) mg/3 ml) 3 Ml Ampul.neb, 1 SAL INH Q4H PRN for SHORTNESS OF BREATH, (Reported) Nitroglycerin (Nitrostat) 0.4 Mg Tab.subl, 0.4 MG SL NITRO PRN for CHEST PAIN, (Reported) Allergies Coded Allergies: Penicillins (Verified Allergy, Unknown, 06/17/19) bee venom protein (honey bee) (Verified Allergy, Unknown, 06/17/19) cephalexin (Verified Allergy, Unknown, 06/17/19) sulfamethoxazole (Verified Allergy, Unknown, 06/17/19) trimethoprim (Verified Allergy, Unknown, 06/17/19) CHRISTIANO DALE MD Jun 28, 2019 18:13
--- NOTE | 2019-06-28 21:25 | ECGEPIP ---
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
== END 2019-06-28 11:12 | disposition short-term general hospital (02) | DRG 290 ==
LOC: M ICU 12:23 → UNDODISIN 12:42
PROVIDERS: ADMIT Internal Medicine; ATTEND Internal Medicine
DX: I33.0 Acute and subacute infective endocarditis (principal); I25.10 Atherosclerotic heart disease of native coronary artery without angina pectoris; I10 Essential (primary) hypertension; I48.91 Unspecified atrial fibrillation; I25.2 Old myocardial infarction; I69.391 Dysphagia following cerebral infarction; N36.8 Other specified disorders of urethra; I44.7 Left bundle-branch block, unspecified; R13.10 Dysphagia, unspecified; Z79.01 Long term (current) use of anticoagulants; Z79.899 Other long term (current) drug therapy; Z88.0 Allergy status to penicillin; Z88.1 Allergy status to other antibiotic agents; Z88.2 Allergy status to sulfonamides; Z88.8 Allergy status to other drugs, medicaments and biological substances; Z91.013 Allergy to seafood; Z95.5 Presence of coronary angioplasty implant and graft; Z95.3 Presence of xenogenic heart valve; Z79.02 Long term (current) use of antithrombotics/antiplatelets